=== PATIENT | female | born 1935 | race Caucasian/White ===

== ENCOUNTER 2017-03-25 16:12 | Inpatient (IN) | payer OTHER, MEDICAID ==
--- NOTE | 2017-03-25 16:15 | EDPHY ---
H & P HPI/ROS: CHIEF COMPLAINT: Back pain, malaise HISTORY OF PRESENT ILLNESS: This patient is an anticoagulated (Coumadin) morbidly obese 81 year old female with a history of chronic back pain, type II diabetes, congestive heart failure , valve replacement, and respiratory failure arriving from home via EMS complaining of right-sided back pain and malaise. She was recently evaluated and treated at [facility] for a urinary tract infection/bacteremia over labor day weekend. She had oral and IV antibiotics at that time. She felt her symptoms resolved following this treatment. Over a month ago she was aditted to [facility] and treated for LE cellulitis. Yesterday, she felt fatigued. This morning during mormon she developed back pain and per her neighbor at bedside, began shivering. She takes diuretics for congestive heart failure and edema but feels these pills have not been helping much lately. She has also had to use her inhaler over the past couple weeks, but does not usually need it. She endorses nausea, but has not vomited. She has no current urinary complaints other than a reduced amount of urine, but her back pain is localized to her right kidney area. Her neighbor recommended she present for evaluation. She denies fever, chest pain, diarrhea, dysuria, hematuria, or other associated symptoms. REVIEW OF SYSTEMS: A ten point review of systems was performed and is negative with the exception of the items mentioned in the HPI. Past medical history: 1. Hypertension 2. Osteoarthritis 3. Hypothyroid 4. DM type II 5. Emphysema 6. Obstructive sleep apnea 7. Hypoxemic respiratory failure 8. Pancreatitis 9. Congestive heart failure 10. Macular degeneration 11. Peripheral venous insufficiency Medications: levothyroxine, Coumadin, Lasix, Tyler, Eylea, Atenolol, Past surgical history: Cholecystectomy, aortic and mitral valve replacement Past medical records reviewed including ED visit 03/10/[address] [facility]. Family history: Noncontributory. Social history: Lives independently in her home. Neighbor at bedside. Primary care provider Dr. Trimble at [place]. Nonsmoker. General Appearance: Alert. Vital signs reviewed. BP 170/90/ Eyes: Pupils equal and round, no conjunctival injection, no discharge. Anicteric. ENT, Mouth: Mucous membranes are moist, no oropharyngeal erythema or edema. Neck: No lymphadenopathy, supple. Respiratory: Lungs are clear to auscultation; no wheezes, rales, or rhonchi. Cardiovascular: Regular rate and rhythm; valvular heart sounds. No murmur, rub , or gallop. Gastrointestinal: Abdomen is obese. Soft and nontender, bowel sounds normal. Skin: Warm and dry, no rashes on exposed skin, normal color. Back: Right-sided CVA tenderness. Nontender to palpation over the thoracolumbar spine. Extremities: Bilateral 2+ pitting edema. Neurological: Alert and oriented. Moving all four extremities easily and equally. Psychiatric: Normal affect. Constitutional: Initial Vital Signs Temperature (C) 37.9 C 03/25/17 16:25 Heart Rate 89 03/25/17 16:25 Respiratory Rate 20 03/25/17 16:25 Blood Pressure 170/90 H 03/25/17 16:25 O2 Sat (%) 97 03/25/17 16:25 O2 Delivery Mode Nasal Cannula O2 (L/minute) 2 Allergies/Adverse Reactions: aspirin Allergy (Verified 03/26/17 00:58) Diarrhea lovastatin Allergy (Verified 03/25/17 16:35) niacin Allergy (Verified 03/25/17 16:35) Sulfa (Sulfonamide Antibiotics) Allergy (Verified 03/26/17 00:58) Rash Home Medications: Medication Instructions Recorded Aflibercept [Eylea] 2 mg IO Q28D 03/25/17 Alendronate Sodium [Fosamax 70 MG 70 mg PO WE@0700 03/25/17 (*)] Atenolol [Tenormin 25 mg (*)] 12.5 mg PO DAILY 03/25/17 Cholecalciferol Vit D3 [Vitamin D3 1,000 units PO DAILY 03/25/17 (*)] Fish Oil/Dha/Epa [Fish Oil 1,200 1 each PO DAILY 03/25/17 mg Fish Oil] Furosemide [Lasix 40 MG (*)] 40 mg PO BIDDIUR 03/25/17 Herbals/Supplements -Info Only 1 ea PO DAILY 03/25/17 Hydrocodone/Acetaminophen [Tyler 1 - 2 tab PO Q4H PRN 03/25/17 5/325 (*)] Levothyroxine [Synthroid 100 mcg 100 mcg PO DAILY06 03/25/17 (*)] Multivit-Min/Iron Fum/Folic AC 1 each PO DAILY 03/25/17 [Ynxow-Bngidwo-Oypjbnxp Tablet] Mupirocin 2% [Bactroban 2%] 1 janneth TP DAILY PRN 03/25/17 Warfarin Sodium [Coumadin 5MG (*)] 5 mg PO HS 03/25/17 Medical Decision Making - Diagnostics EKG Interpretation: The 12 lead EKG was interpreted by myself. See hard copy and/or "tracemaster" electronic copy for interpretation. Sinus rhythm, rate 74. Left bundle branch block noted. LBBB listed in her medical records from [facility]. Imaging: I viewed and interpreted images myself ED Course/Re-evaluation: Anticoagulated 81 year old female presents with two day history of malaise and right-sided back pain. Physical exam reveals right-sided CVA tenderness, 2+ pitting edema of lower extremities bilaterally. Plan for labs including CBC, BMP , lactic acid, PTPTT, bilirubin, UA, and respiratory pathogen testing. Plan for chest x-ray. UA is negative for UTI. Laboratory results reviewed. She does not meet sepsis criteria. Reviewed x-ray. Bilateral diffuse interstitial infiltrates noted representing diffuse interstitial pneumonitis versus interstitial pulmonary edema. 17:30 Reassessed patient. Took temp at bedside and it is now elevated. Plan to administer 1000mg PO Tylenol. Family is present at bedside. 19:00 Received and reviewed records from [facility]. She was evaluated 03/10/17, and sent home on Ceftin for urinary tract infection. IV antibiotics (Rocephin) given for two days following positive blood culture results. Repeat blood cultures following IV antibiotics were negative. She completed her course of oral antibiotics yesterday and felt well until today. 20:16 Reassessed patient. When she got up to go to the restroom, her back and legs began hurting. Her back pain is located above her kidneys. She states she had difficulty walking after mormon due to inability to move her legs after mormon, and felt similarly just now ambulating to the restroom. On reexamination , she has midline low thoracic and upper lumbar tenderness. She usually ambulates with a walker, but she was unable to get past the door from bed due to pain in feet, knees, and back. Plan for x-ray of lumbar spine, thoracic spine. Plan to admit for further evaluation. 20:44 The patient is now feeling nauseous and has begun vomiting. Nursing staff have been unable to place an IV successfully. Plan to establish PICC line. 20:[address] Nguyen, hospitalist. Of note, the patient is a [place] patient, but [facility] is currently on divert due to unspecified problems. Dr. Nguyen accepts admission. The patient states she fell a couple months ago, and has been experiencing left hip pain. Plan for x-ray of pelvis. Xrays do not show evidence of compression fracture in spine--but she does have degenerative disease and L45 L5S1 anterolisthesis that would result in canal narrowing. No hip fracture. The degenerative changes and anterolisthesis could be causing her back pain. I am also concerned about infection in this setting of recent UTI, fever, general malaise, and prosthetic heart valves. Possible infected sites include back (discitis), heart valves (endocarditis), and urine (although UA negative for signs of infection). WBC not elevated, procalcitonin WNL, lactic acid normal. She also appears to have an element of CHF with CXR findings and elevated BNP. She did receive lasix in ED. Additional evaluation and treatment per admitting team. Patient will be having PICC line placed and then will go to her floor bed. - Data Points Laboratory Results: Laboratory Results 03/25/17 17:10 03/25/17 16:35 Microbiology Results: MICROBIOLOGY 03/25/17 00:00 Blood Blood Culture - Final Enterococcus Faecalis 03/25/17 17:10 Blood Blood Culture - Final Enterococcus Faecalis 03/25/17 17:10 Blood Blood Panel (PCR) - Final Enterococcus Species Medications Given: Acetaminophen (Tylenol) 650 mg PO Q4HRS PRN PRN Reason: Pain, Mild/Fever, Can Take PO Stop: 09/21/17 20:57 Last Admin: 03/27/17 11:31 Dose: 650 mg Atenolol (Tenormin) 12.5 mg PO DAILY TITUS Stop: 09/23/17 08:59 Last Admin: 03/29/17 08:37 Dose: 12.5 mg Cholecalciferol (Vitamin D) 1,000 units PO DAILY TITUS Stop: 09/23/17 08:59 Last Admin: 03/29/17 08:37 Dose: 1,000 units Vancomycin HCl 750 mg/ (Dextrose) 165 mls @ 165 mls/hr IV Q12H TITUS PRN Reason: Protocol Stop: 04/27/17 20:59 Last Admin: 03/29/17 08:38 Dose: 165 mls Levothyroxine Sodium (Synthroid) 100 mcg PO DAILY06 TITUS Stop: 09/22/17 09:29 Last Admin: 03/29/17 03:56 Dose: 100 mcg Multivitamins/Minerals (Thera M Plus Tablet) 1 each PO DAILY TITUS Stop: 09/23/17 08:59 Last Admin: 03/29/17 08:37 Dose: 1 each Ysmyj-8-Ubmm Ethyl Esters (Fish Oil) 1,000 mg PO DAILY TITUS Stop: 09/23/17 08:59 Last Admin: 03/29/17 08:37 Dose: 1,000 mg Ondansetron HCl (Zofran) 4 mg IVP Q4HRS PRN PRN Reason: Nausea/Vomiting, Can't Take PO Stop: 09/21/17 20:57 Last Admin: 03/26/17 09:33 Dose: 4 mg Oxycodone HCl (Oxycodone Ir) 5 - 10 mg PO Q3HRS PRN PRN Reason: Pain, Severe Able to Take PO Stop: 04/04/17 20:57 Last Admin: 03/29/17 08:37 Dose: 5 mg Warfarin Sodium (Coumadin) 5 mg PO HS TITUS Stop: 09/22/17 20:59 Last Admin: 03/28/17 19:52 Dose: 5 mg Discontinued Medications Acetaminophen (Tylenol) 1,000 mg PO EDNOW ONE Stop: 03/25/17 17:37 Last Admin: 03/25/17 17:45 Dose: 1,000 mg Furosemide (Lasix) 40 mg PO EDNOW ONE Stop: 03/25/17 19:03 Last Admin: 03/25/17 19:04 Dose: 40 mg Furosemide (Lasix Injection) 40 mg IVP BID@0900,1500 TITUS Stop: 09/21/17 21:59 Last Admin: 03/27/17 09:39 Dose: 40 mg Vancomycin HCl 1.25 gm/ (Dextrose) 250 mls @ 166.667 mls/hr IV Q24H TITUS Stop: 04/25/17 05:59 Last Admin: 03/28/17 06:17 Dose: 250 mls Sodium Chloride (Ns) 1,000 mls @ 0 mls/hr IV ONCALL ONE PRN Reason: TKO Stop: 03/26/17 10:20 Last Admin: 03/26/17 11:57 Dose: 1,000 mls Sodium Chloride (Ns) 1,000 mls @ 0 mls/hr IV ONCALL ONE PRN Reason: TKO Stop: 03/27/17 12:36 Last Admin: 03/27/17 13:10 Dose: Not Given Potassium Chloride (Klor-Con) 20 meq PO ONCE ONE Stop: 03/27/17 15:16 Last Admin: 03/27/17 15:15 Dose: 20 meq Departure - Departure Disposition: [facility] Inpatient Acute Clinical Impression: Back pain Qualifiers: Back pain location: low back pain Chronicity: chronic Back pain laterality: left Sciatica presence: without sciatica Qualified Code(s): M54.5 - Low back pain; G89.29 - Other chronic pain Congestive heart failure (CHF) Qualifiers: Congestive heart failure type: unspecified congestive heart failure type Congestive heart failure chronicity: acute on chronic Qualified Code(s): I50.9 - Heart failure, unspecified Condition: Fair Report Scribed for: Mirna Sher Report Scribed by: Ruchi Wall Date of Report: 03/25/17 Time of Report: 16:44 Physician Review and Approval Statement: 03/25/17 16:15 Portions of this note were transcribed by the remote medical coder. I, Dr. Mirna Sher, personally performed the history, physical exam, and medical decision- making; and confirmed the accuracy of the information in the transcribed note.
[2017-03-25 16:56] LABS: % IMMATURE GRANULYOCYTES 0.4 % (0.0-1.1); ABSOLUTE IMMATURE GRANULOCYTES 0.03 10^3/uL (0.00-0.10); ADD DIFF? NO; ADD MORPH? NO; ADD SCAN? YES; ATYPICAL LYMPHOCYTE FLAG 0 (0-99); FRAGMENT RBC FLAG 0 (0-99); HEMATOCRIT 38.2 % (38.0-47.0); HEMOGLOBIN 12.5 g/dL (12.6-16.3); LEFT SHIFT FLG 0 (0-99); LIPEMIA HEMOLYSIS FLAG 80 (0-99); MEAN CELL HEMOGLOBIN 28.2 pg (27.9-34.1); MEAN CELL HEMOGLOBIN CONCENTR. 32.7 g/dL (32.4-36.7); MEAN CELL VOLUME 86.2 fL (81.5-99.8); MEAN PLATELET VOLUME 11.3 fL (8.7-11.7); PLATELET COUNT 187 10^3/uL (150-400); RED BLOOD CELL COUNT 4.43 10^6/uL (4.18-5.33); RED CELL DISTRIBUTION WIDTH 14.4 % (11.5-15.2)
[2017-03-25 16:57] LABS: PLATELET CLUMPS FLAG 300 (0-99)
[2017-03-25 17:14] LABS: ANION GAP 8 mEq/L (8-16); BILIRUBIN,TOTAL 1.3 mg/dL (0.1-1.4); CALCIUM 9.4 mg/dL (8.5-10.4); CARBON DIOXIDE 24 mEq/l (22-31); CHLORIDE 105 mEq/L (97-110); GLOMERULAR FILTRATION RATE 53; GLUCOSE 163 mg/dL (70-100); POTASSIUM 4.5 mEq/L (3.5-5.2); SODIUM 137 mEq/L (134-144); SPECIMEN HEMOLYSIS 118
[2017-03-25 17:19] LABS: SCAN NEGATIVE
[2017-03-25 17:29] LABS: INR 3.05 (0.83-1.16)
[2017-03-25 17:30] LABS: APTT 37.7 SEC (23.0-38.0)
[2017-03-25 17:34] LABS: COLOR YELLOW; LEUKOCYTE ESTERASE,URINE NEGATIVE (NEGATIVE); NITRITE,URINE NEGATIVE (NEGATIVE)
[2017-03-25] MEDS ORDERED: ACETAMINOPHEN 500 MG TAB PO ONE (17:36)
[2017-03-25] MEDS ORDERED: FUROSEMIDE 40 MG TAB PO ONE (19:02)
--- NOTE | 2017-03-25 19:20 | CPEKG ---
Heart Rate: 74 RR Interval: 811 P-R Interval: 232 QRSD Interval: 170 QT Interval: 476 QTC Interval: 529 P Alder: 28 QRS Alder: 16 T Wave Alder: 189 EKG Severity - ABNORMAL ECG - EKG Impression: SINUS RHYTHM EKG Impression: FIRST DEGREE AV BLOCK EKG Impression: IVCD, CONSIDER ATYPICAL LBBB Electronically Signed By: Mirna Sher 26-Mar-2017 00:01:35
[2017-03-25 19:24] LABS: TROPONIN I 0.033 ng/mL (0.000-0.034)
[2017-03-25] MEDS ORDERED: ALTEPLASE 2 MG VIAL IVP PRN (20:44)
[2017-03-25] MEDS ORDERED: ONDANSETRON 4 MG/2 ML VIAL IVP PRN (20:58)
[2017-03-25] MEDS ORDERED: ONDANSETRON DISINTEGRATING 4 MG TAB PO PRN (20:58)
[2017-03-25 21:20] LABS: HEMATOCRIT 36.5 % (38.0-47.0)
--- NOTE | 2017-03-25 21:33 | PDGENHP ---
History and Physical - Chief Complaint Acute malaise - History of Present Illness PCP: Dr. Trimble at [facility] HPI: 81 yo F p/w acute malaise characterized as nausea and generally feeling unwell, resulting in associated weakness located in the bilateral lower extremities, as well as acutely worsening pain located in her lower back, with resultant inability to ambulate. Onset of symptoms on the date of this presentation, and duration has been persistent, rendering her unable to get out of her trailer, and calling 911. She has been taking vicodin chronically to alleviate chronic back pain, but today 2 tabs did not seem to alleviate the worsening pain. This occurs in the context of approx 6 weeks of medical issues: 6 weeks ago she had a 4 day hospitalization at [facility] for cellulitis of the bilateral lower extremities, and was discharged home on oral antibiotics. She then had another presentation to the [facility] ED for what sounds like suspected recurrent cellulitis, and then, recently presented for UTI and bacteremia, for which she received 3 days of IV CTX and then subsequent PO Abx. She completed her course of PO Abx 3 days ago, and has not seen a medical provider since. She has not been adhering to her bid dosing of lasix, occasionally taking only daily, and experiencing leg pain and edema. History Information - Allergies/Home Medication List Allergies/Adverse Reactions: lovastatin Allergy (Verified 03/25/17 16:35) niacin Allergy (Verified 03/25/17 16:35) Home Medications: ALENDRONATE SODIUM 03/25/17 [Last Taken Unknown] Aflibercept 03/25/17 [Last Taken Unknown] Atenolol 03/25/17 [Last Taken Unknown] CHOLECALCIFEROL 03/25/17 [Last Taken Unknown] Furosemide 03/25/17 [Last Taken Unknown] Hydrocodon-Acetaminophen 5-325 03/25/17 [Last Taken Unknown] Levothyroxine 03/25/17 [Last Taken Unknown] Multivit with Iron-Minerals 03/25/17 [Last Taken Unknown] Mupirocin Calcium 03/25/17 [Last Taken Unknown] Ocuvite 03/25/17 [Last Taken Unknown] [place]-3 Fish Oil 1,200 mg Sfgl 03/25/17 [Last Taken Unknown] Onetouch Verio 03/25/17 [Last Taken Unknown] Proair Hfa 03/25/17 [Last Taken Unknown] Triamcinolone Acetonide 03/25/17 [Last Taken Unknown] Vitamin B Complex 03/25/17 [Last Taken Unknown] Warfarin Sodium 03/25/17 [Last Taken Unknown] I have personally reviewed and updated: family history, medical history, social history, surgical history - Past Medical History Additional medical history: CHF. recent UTI/bactermia. HTN. Hypothyroidism. Peripheral Neuropathy. Chronic lower extremity wounds. hx of "blood clots". DM2 diet controlled. chronic lower back pain and continuous opiate dependency - Surgical History Additional surgical history: AVR and MVR on coumadin - Family History Additional family history: no recent sick family contacts - Social History Smoking Status: Former smoker Alcohol Use: None Drug Use: None Additional social history: lives alone in [place], walker at baseline Review of Systems Review of Systems: ROS: 10pt was reviewed & negative except for what was stated in HPI & below Constitutional: Reports: fever (subjective), malaise, weakness Cardiac: Reports: edema Physical Exam Physical Exam: Temp Pulse Resp BP Pulse Ox 37.5 C 67 18 181/87 H 95 03/25/17 18:00 03/25/17 18:00 03/25/17 18:00 03/25/17 18:00 03/25/17 18:00 Constitutional: not in pain, chronically ill appearing, obese, uncomfortable Eyes: PERRL, anicteric sclera, EOMI Ears, Nose, Mouth, Throat: moist mucous membranes, hearing normal, ears appear normal, no oral mucosal ulcers Cardiovascular: systolic murmur (II/ at sternum and apex w/ S2 click at sternum), edema (1+ bilat LE), No irregularly irregular, No tachycardia Respiratory: inspiratory crackles, No reduced air movement, No expiratory wheeze , No bronchial breath sounds, No respiratory distress Gastrointestinal: normoactive bowel sounds, soft, non-tender abdomen, no palpable masses, No guarding, No distension Genitourinary: no bladder fullness, no bladder tenderness Skin: other (scaly patches w/ non-blanching erythema bilat LE) Neurologic: sensation intact bilaterally, CN II-XII Intact, other (AAOx2 ( person and place, not time)), No weakness (motor 5/5 bilat LE) Psychiatric: not anxious, flat affect, other (concentration 1/7), No agitated Lab Data & Imaging Review 03/25/17 17:10 03/25/17 16:35 WBC 7.35 10^3/uL (3.80-9.50) 03/25/17 16:35 RBC 4.43 10^6/uL (4.18-5.33) 03/25/17 16:35 Hgb 12.5 g/dL (12.6-16.3) L 03/25/17 16:35 Hct 36.5 % (38.0-47.0) L 03/25/17 17:10 MCV 86.2 fL (81.5-99.8) 03/25/17 16:35 MCH 28.2 pg (27.9-34.1) 03/25/17 16:35 MCHC 32.7 g/dL (32.4-36.7) 03/25/17 16:35 RDW 14.4 % (11.5-15.2) 03/25/17 16:35 Plt Count 187 10^3/uL (150-400) 03/25/17 16:35 MPV 11.3 fL (8.7-11.7) 03/25/17 16:35 Neut % (Auto) 84.7 % (39.3-74.2) H 03/25/17 16:35 Lymph % (Auto) 8.8 % (15.0-45.0) L 03/25/17 16:35 [place] % (Auto) 5.2 % (4.5-13.0) 03/25/17 16:35 Eos % (Auto) 0.5 % (0.6-7.6) L 03/25/17 16:35 Baso % (Auto) 0.4 % (0.3-1.7) 03/25/17 16:35 Nucleat RBC Rel Count 0.0 % (0.0-0.2) 03/25/17 16:35 Absolute Neuts (auto) 6.22 10^3/uL (1.70-6.50) 03/25/17 16:35 Absolute Lymphs (auto) 0.65 10^3/uL (1.00-3.00) L 03/25/17 16:35 Absolute Monos (auto) 0.38 10^3/uL (0.30-0.80) 03/25/17 16:35 Absolute Eos (auto) 0.04 10^3/uL (0.03-0.40) 03/25/17 16:35 Absolute Basos (auto) 0.03 10^3/uL (0.02-0.10) 03/25/17 16:35 Absolute Nucleated RBC 0.00 10^3/uL (0-0.01) 03/25/17 16:35 Immature Gran % 0.4 % (0.0-1.1) 03/25/17 16:35 Immature Gran # 0.03 10^3/uL (0.00-0.10) 03/25/17 16:35 PT 32.0 SEC (12.0-15.0) H 03/25/17 17:10 INR 3.05 (0.83-1.16) H 03/25/17 17:10 APTT 37.7 SEC (23.0-38.0) 03/25/17 17:10 VBG Lactic Acid 1.4 mmol/L (0.7-2.1) 03/25/17 17:10 Sodium 137 mEq/L (134-144) 03/25/17 16:35 Potassium 4.5 mEq/L (3.5-5.2) 03/25/17 16:35 Chloride 105 mEq/L (97-110) 03/25/17 16:35 Carbon Dioxide 24 mEq/l (22-31) 03/25/17 16:35 Anion Gap 8 mEq/L (8-16) 03/25/17 16:35 BUN 17 mg/dL (7-23) 03/25/17 16:35 Creatinine 1.0 mg/dL (0.6-1.0) 03/25/17 16:35 Estimated GFR 53 03/25/17 16:35 Glucose 163 mg/dL (70-100) H 03/25/17 16:35 Calcium 9.4 mg/dL (8.5-10.4) 03/25/17 16:35 Total Bilirubin 1.3 mg/dL (0.1-1.4) 03/25/17 16:35 Troponin I 0.033 ng/mL (0.000-0.034) 03/25/17 17:10 NT-Pro-B Natriuret Pep 4140 pg/mL (0-450) H 03/25/17 17:10 Specimen Hemolysis 118 03/25/17 16:35 Urine Color YELLOW 03/25/17 17:20 Urine Appearance CLEAR 03/25/17 17:20 Urine pH 7.0 (5.0-7.5) 03/25/17 17:20 Ur Specific [place] 1.018 (1.002-1.030) 03/25/17 17:20 Urine Protein NEGATIVE (NEGATIVE) 03/25/17 17:20 Urine Ketones NEGATIVE (NEGATIVE) 03/25/17 17:20 Urine Blood NEGATIVE (NEGATIVE) 03/25/17 17:20 Urine Nitrate NEGATIVE (NEGATIVE) 03/25/17 17:20 Urine Bilirubin NEGATIVE (NEGATIVE) 03/25/17 17:20 Urine Urobilinogen NEGATIVE EU (0.2-1.0) 03/25/17 17:20 Ur Leukocyte Esterase NEGATIVE (NEGATIVE) 03/25/17 17:20 Urine RBC 3-5 /hpf (0-3) H 03/25/17 17:20 Urine WBC 1-3 /hpf (0-3) 03/25/17 17:20 Ur Epithelial Cells TRACE /lpf (NONE-1+) 03/25/17 17:20 Urine Glucose 1+ (NEGATIVE) H 03/25/17 17:20 Visualized and Interpreted Chest x-ray results: Yes Chest X-Ray results: other (bilat interstitial edema) Visualized and Interpreted EKG results: Yes EKG Interpretation: Positive for: left bundle branch block (NSR) Assessment & Plan Assessment: 81 yo F p/w general malaise in setting of recent bacteremia, possible CHF exacerbation Plan: # Malaise. Acute, new problem, further w/u indicated. Unclear if 2/2 CHF vs. retained infxn - it is possible that she has seeded either her valves or back - get procalcitonin, ESR, CRP, CPK to gauge whether left shift and subjective fever indicative of infxn - get VBG to r/o hypercapnia - get Echo - monitor fever curve, repeat CBC in AM - hold on Abx - if inflammatory markers positive and x-rays of back do not demonstrate compression fxr or other etiology of her pain, would recommend pursuing MRI - if TTE neg but infxn suspicion high, would rec RUBIO, will make NPO in AM - will get ID consult # Possible CHF exacerbation. CXR w/ interstitial infiltrates, BNP 4100, LE edema , poor adherence to diuretic - s/p PO lasix in ED, will cont IV bid - obtain outside Echo record from [facility] - get Echo here - monitor I/O/weights - further define whether systolic or diastolic # MVR/AVR. Cont coumadin, daily INR # HTN. Chronic, cont home RX w/ increased dose of lasix # Chronic pain w/ continuous opiate dependency. Cont oxy IR + tylenol + heat pad + lidoderm - PT/OT, will likely require SNF 2/2 deconditioning # Acute encephalopathy. Evidenced by global brain dysfunction characterized as disorientation + impaired concentration + lethargy, all of which are an acute change from baseline, 2/2 possible toxic effects of infxn, ruling out hypercapnia Diet. Cardiac, NPO in AM PPx. High risk, on coumadin Code. DNR per patient, daughter is MDPOA Dispo. ADD uncertain, anticipated LOS > 48hrs warranting inpatient admission for reasonable medical necessity including malaise and possible infxn in high risk patient w/ recent bacteremia, possible CHF exacerbation. Discussed with Dr. Sher, we both agree that patient warrants inpatient admission for w/u of above, unsafe to DC home, unable to care for self. [facility] is on divert and patient was sent to our hospital, as there is some type of generator issue resulting in their hospital being on divert.
[2017-03-25] MEDS ORDERED: ACETAMINOPHEN 325 MG TAB ONE (21:38)
[2017-03-25] MEDS ORDERED: oxyCODONE IR 5 MG TAB ONE (21:39)
[2017-03-25] MEDS: ACETAMINOPHEN 325 MG TAB PO PRN (21:40)
[2017-03-25] MEDS: oxyCODONE IR 5 MG TAB PO PRN (21:41)
[2017-03-25 21:44] LABS: C-REACTIVE PROTEIN 11.8 mg/L (<10.0)
[2017-03-26] MEDS: FUROSEMIDE 40 MG/4 ML VIAL IVP SCH ×3 (00:22→14:59)
[2017-03-26] MEDS: ACETAMINOPHEN 325 MG TAB PO PRN ×3 (05:43→23:19)
[2017-03-26] MEDS: VANCOMYCIN 1.25 GM in D5W 250 ML IV SCH (05:44)
[2017-03-26 06:08] LABS: % IMMATURE GRANULYOCYTES 0.2 % (0.0-1.1); ABSOLUTE IMMATURE GRANULOCYTES 0.02 10^3/uL (0.00-0.10); ADD DIFF? NO; ADD MORPH? NO; ADD SCAN? NO; ATYPICAL LYMPHOCYTE FLAG 0 (0-99); FRAGMENT RBC FLAG 0 (0-99); HEMATOCRIT 33.9 % (38.0-47.0); HEMOGLOBIN 11.1 g/dL (12.6-16.3); LEFT SHIFT FLG 10 (0-99); LIPEMIA HEMOLYSIS FLAG 80 (0-99); MEAN CELL HEMOGLOBIN CONCENTR. 32.7 g/dL (32.4-36.7); MEAN CELL VOLUME 85.4 fL (81.5-99.8); MEAN PLATELET VOLUME 10.9 fL (8.7-11.7); PLATELET CLUMPS FLAG 0 (0-99); PLATELET COUNT 137 10^3/uL (150-400); RED BLOOD CELL COUNT 3.97 10^6/uL (4.18-5.33); RED CELL DISTRIBUTION WIDTH 14.4 % (11.5-15.2)
[2017-03-26 06:26] LABS: ALANINE AMINOTRANSFERASE 33 IU/L (9-52); ALBUMIN 3.1 g/dL (3.5-5.0); ALKALINE PHOSPHATASE 70 IU/L (38-126); ANION GAP 8 mEq/L (8-16); ASPARTATE AMINOTRANSFERASE 52 IU/L (14-46); BILIRUBIN,TOTAL 1.1 mg/dL (0.1-1.4); CALCIUM 8.4 mg/dL (8.5-10.4); CARBON DIOXIDE 25 mEq/l (22-31); CHLORIDE 102 mEq/L (97-110); CREATININE 1.1 mg/dL (0.6-1.0); GLOMERULAR FILTRATION RATE 47; GLUCOSE 181 mg/dL (70-100); POTASSIUM 3.7 mEq/L (3.5-5.2); SODIUM 135 mEq/L (134-144); TOTAL PROTEIN 5.5 g/dL (6.3-8.2)
[2017-03-26] MEDS: oxyCODONE IR 5 MG TAB PO PRN ×2 (09:07→19:42)
[2017-03-26] MEDS ORDERED: MUPIROCIN 2% 22 GM OINT TP PRN (09:30)
--- NOTE | 2017-03-26 10:06 | ECHO ---
[id number] + + [address] : : [place] [address] : : [phone] + + Adult Echocardiographic Report + -----+ :Name: HAZEL SIMPSON LStudy Date: 03/26/2017 08:40 AM : : Hospital Admission Number: [id number] Location : 206: :: 1935 Gender: Female Height: 60 in : :Age: 81 yrs Race: WH Weight: 211 lb : :Reason For Study: Eval for Vegetations : : BSA: 1.9 meters2 : :History: Fever, UTI, AVR/MVR 2004 : + -----+ MMode/2D Measurements & Calculations IVSd: 0.90 cm LVIDd: 4.2 cm FS: 27.6 % Ao root diam: 2.1 cm LVPWd: 1.2 cm LVIDs: 3.0 cm EDV(Teich): 77.0 ml ACS: 1.1 cm ESV(Teich): 35.4 ml EF(Teich): 54.1 % LVOT diam: 1.9 cm LVOT area: 2.8 cm2 Normal Measurement Values: + + :LVIDd (3.5-5.7cm) IVSd (0.6-1.1cm) LVPWd (0.6-1.1cm) Aortic Root (2.0-3.7cm)Left Atrium (1.5-4.0cm): :LV Vol(d) (76-115ml) LV Vol(s) (29-48ml) Ejec Fraction (50-65%)PV Kishor (0.6- 1.2m/s) TV Kishor (0.4-1.0m/s) : :MV E Kishor (0.8-1.0m/s)MV A Kishor (0.3-1.0m/s)LVOT Kishor (0.7-1.2m/s) Asc Ao Kishor ( 0.9-1.8m/s) : + + Doppler Measurements & Calculations MV E max kishor: MV V2 mean: MV P1/2t max kishor: Ao V2 max: 203.6 cm/sec 147.3 cm/sec 253.8 cm/sec 289.1 cm/sec MV A max kishor: MV mean PG: MV P1/2t: 51.4 msec Ao max P.4 cm/sec 10.1 mmHg 33.4 mmHg MV E/A: 2.4 MV V2 VTI: 51.4 cmMVA(P1/2t): 4.3 cm2 Ao mean PG: MV dec time: MV dec slope: 21.6 mmHg 0.19 sec MVA(VTI): 1.2 cm2 1448 cm/sec2 Ao V2 mean: 217.5 cm/sec Ao V2 VTI: 64.2 cm HAWA(I,D): 0.96 cm2 HAWA(V,D): 0.83 cm2 LV V1 max: SV(LVOT): 61.5 ml 85.0 cm/sec LV V1 max P.9 mmHg LV V1 mean P.7 mmHg LV V1 mean: 62.9 cm/sec LV V1 VTI: 21.7 cm Left Ventricle The left ventricle is normal in size. There is normal left ventricular wall thickness. Ejection Fraction = 55%. Left ventricular systolic function is low normal. Right Ventricle The right ventricle is normal in size and function. Atria The left atrium is mildly dilated. Right atrial size is normal. Mitral Valve There is a bioprosthetic mitral valve. Vegetations are suspected on this prosthetic mitral valve. Cannot assess the presence or severity of regurgitation due to shielding from the prosthesis. Gradients are abnormal for this prosthetic mitral valve. The MV mean PG is 10 mmHg. Tricuspid Valve The tricuspid valve is normal in structure and function. Aortic Valve The Ao mean PG is 21mmHg with a max PG of 33 mmHg. There is a bioprosthetic aortic valve. Vegetations are suspected on this prosthetic aortic valve. Pulmonic Valve The pulmonic valve is normal in structure and function. Great Vessels The aortic root is normal size. Pericardium/Pleural There is no pericardial effusion. Conclusion A complete two-dimensional transthoracic echocardiogram was performed (2D, M-mode, Doppler and color flow Doppler). A transesophageal echocardiogram is recommended. Ejection Fraction = 55%. Left ventricular systolic function is low normal. The right ventricle is normal in size and function. The left atrium is mildly dilated. There is a bioprosthetic mitral valve. Vegetations are suspected on this prosthetic mitral valve. Cannot assess the presence or severity of regurgitation due to shielding from the prosthesis. Gradients are abnormal for this prosthetic mitral valve. The MV mean PG is 10 mmHg. The tricuspid valve is normal in structure and function. There is a bioprosthetic aortic valve. The Ao mean PG is 21mmHg with a max PG of 33 mmHg. Vegetations are suspected on this prosthetic aortic valve. There is no pericardial effusion. A transesophageal echocardiogram is recommended. Final Reading Physician: Saeid Hallman signed on 03/26/2017 10:05 AM Ordering Physician: Prashanth Nguyen Performed By: Morgan Encinas, CLOVERCS
[2017-03-26] MEDS ORDERED: NS 1,000 ML IV ONE (10:19)
[2017-03-26] MEDS: LEVOTHYROXINE 100 MCG TAB PO SCH (11:57)
--- NOTE | 2017-03-26 12:53 | ASMTCMCOM ---
CM Note CM Note Notes: Pt admitted with malaise and lower back pain. testing in progress, ID consult pending. C/M will follow for DC needs. Date Signed: 03/26/2017 12:53 PM Electronically Signed By:Suzette Oneill LCSW
--- NOTE | 2017-03-26 15:37 | HOSPPROG ---
Hospitalist Progress Note Assessment/Plan: # Acute Enterococcus bacteremia- 2/2 blood cultures from admission- Prelim ECHO concerning for possible vegetation - consult Cardiology for transesophageal echocardiogram - continue IV vancomycin - consult Infectious Disease for long-term management of bacteremia # Thoracic back pain acute- thoracic spine x-ray (personally reviewed and interpreted) no acute fractures or findings consistent with bony abnormality - thoracic MRI to rule-out epidural abscess - will continue p.r.n. pain meds # Possible CHF exacerbation. CXR w/ interstitial infiltrates, BNP 4100, LE edema, poor adherence to diuretic ECHO (reviewed) ejection fraction 50%- concern for vegetations - s/p PO lasix in ED, will cont IV bid # MVR/AVR. Cont coumadin, daily INR # HTN. Chronic, cont home RX w/ increased dose of lasix # Chronic pain w/ continuous opiate dependency. - Cont oxy IR + tylenol + heat pad + lidoderm - PT/OT, will likely require SNF 2/2 deconditioning # Acute encephalopathy- appears improved overnight Diet. Cardiac, NPO for RUBIO PPx. High risk, on coumadin Code. DNR per patient, daughter is MDPOA I have discussed the case with Cardiology and Infectious Disease will plan for transesophageal echocardiogram continue IV antibiotics Subjective: Back pain thoracic Objective: Vital Signs Temp Pulse Resp BP Pulse Ox 37.9 C 70 18 141/46 H 93 03/26/17 12:00 03/26/17 12:00 03/26/17 12:00 03/26/17 12:00 03/26/17 12:00 Laboratory Results 03/26/17 05:50 03/26/17 05:50 03/25/17 03/26/17 03/27/17 05:59 05:59 05:59 Intake Total 250 Output Total 525 Balance -525 250 PT 32.0 SEC (12.0-15.0) H 03/25/17 17:10 INR 3.05 (0.83-1.16) H 03/25/17 17:10 - Physical Exam Constitutional: obese Eyes: anicteric sclera Ears, Nose, Mouth, Throat: dry mucous membranes Cardiovascular: regular rate and rhythym, systolic murmur Respiratory: no respiratory distress, inspiratory crackles Gastrointestinal: normoactive bowel sounds Genitourinary: no bladder fullness Skin: warm Musculoskeletal: No asymmetric calves Neurologic: AAOx3 Psychiatric: depressed Lymph, Heme, Immunologic: no cervical LAD ICD10 Worksheet Patient Problems: Problems Problem Status Onset Back pain Acute Congestive heart failure (CHF) Acute
[2017-03-26] MEDS ORDERED: GADOBUTROL 10 ML VIAL IVP ONE (18:13)
--- NOTE | 2017-03-26 18:24 | GCON ---
[f rep st] CONSULTATION INFECTIOUS DISEASE CONSULTATION REFERRING PHYSICIAN: Prashanth Nguyen MD REASON FOR REFERRAL: Bacteremia and probable endocarditis. HISTORY OF PRESENT ILLNESS: Patient is an 81-year-old female who has had the majority of her care in the [facility], who presented to [facility] on 03/25/2017, in the early or mid afte rnoon, complaining of back pain and general malaise. The patient states that over the last number of months, she has been evaluated and admitted at [facility] for urinary tract infections and bacteremia. She has had multiple antibiotic courses over the last 6 months, where she felt elizabeth r during treatment but soon thereafter, recurred with symptoms. The patient is unaware of which path ogens were cultured during these episodes. The patient was seen and placed on IV vancomycin 1.25 g q .24 hours. Blood cultures obtained yesterday afternoon grew Enterococcus species. Currently, the michael luz is resting comfortably in her hospital bed. She states she feels a little better than she did yesterday. She continues to have some back pain. The patient has had fevers to 39 degree Celsius, b oth yesterday and today, which are documented. PAST MEDICAL HISTORY: 1. Congestive heart failure. 2. Recent urinary tract infections and bacteremia. 3. Hypertension. 4. Hypothyroidism. 5. Peripheral neuropathy. 6. History of blood clots. 7. Type 2 diabetes. 8. Chronic low back pain. PAST SURGICAL HISTORY: Status post aortic valve and mitral valve replacement in 2001. ANTIBIOTICS: Vancomycin. ALLERGIES: The patient is allergic to sulfa, niacin, lovastatin and aspirin. SOCIAL HISTORY: The patient is without significant history for tobacco, alcohol or drug use. She porras s a supportive family. FAMILY HISTORY: Reviewed, but noncontributory. REVIEW OF SYSTEMS: Other than that detailed above in History of Present Illness, a comprehensive 10- system review is negative. PHYSICAL EXAMINATION: VITAL SIGNS: Temperature maximum is 39.1, temperature current is 37.8, heart rate is 81, respiratory rate is 16, blood pressure is 106/58. GENERAL: The patient is a well-formed , well-nourished, elderly female, in no acute distress. She is mildly toxic in appearance. She is a lert and oriented x3. She is pleasant in demeanor. HEENT: Normocephalic for age. Atraumatic. No scleral icterus. No oral lesion. No drainage from the nares. Eyes: Lids and conjunctivae are with in normal limits. Pupils are equal and round bilaterally. NECK: Supple without meningismus. LUNGS : Clear to auscultation bilaterally with good effort. HEART: Regular rate and rhythm. The patient has a 2/6 systolic murmur heard at the left sternal border. No rub appreciated. The patient has 1+ bilateral peripheral lower extremity edema. ABDOMEN: Soft, nontender. No masses. SKIN: Warm and dry to the touch. No rash or lesions seen. MUSCULOSKELETAL: No muscle tenderness is noted. No peyton int line effusion or arthritis seen. NEURO: Cranial nerves 2-12 seem to be intact. Peripheral sens ation seems intact in extremities. LABORATORY DATA: Patient has a CBC dated -, shows a white blood cell count of 9.2, hemoglob in 11.1, hematocrit of 33.9, platelet count 137, differential is left shifted with 92% segmented neut rophils. Serum chemistries on 03/26 show a sodium of 135, potassium 3.7, chloride of 102, bicarbonate 25, BUN of 17, creatinine 1.1. AST is 52. ALT is 33. Procalcitonin level is 0.09. MICROBIOLOGIC DATA: Patient has blood cultures dated 03/25/2017, which show enterococcus species. ASSESSMENT: Enterococcal bacteremia with appearance of vegetation on the transthoracic echocardiogra m. 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 Agree with vancomycin coverage until sensitivities of Enterococcus are elucidated. We will recheck blood cultures tomorrow with 2 sets. We will further discuss with Cardiology the size and nature the vegetations. Will also obtain from [facility], the history of microbiologic isolates. PLAN: 1. Continue vancomycin at current dose. 2. Check vancomycin trough prior to 4th dose. 3. Repeat blood cultures in the morning. 4. Follow clinical course, including fever curve and laboratory data. /[id number]/MODL
[2017-03-26] MEDS: WARFARIN SODIUM 5 MG TAB PO SCH (19:42)
[2017-03-27] MEDS: VANCOMYCIN 1.25 GM in D5W 250 ML IV SCH (05:21)
[2017-03-27] MEDS: LEVOTHYROXINE 100 MCG TAB PO SCH (05:21)
[2017-03-27 07:20] LABS: HEMATOCRIT 29.1 % (38.0-47.0); HEMOGLOBIN 9.5 g/dL (12.6-16.3); MEAN CELL HEMOGLOBIN 28.3 pg (27.9-34.1); MEAN CELL HEMOGLOBIN CONCENTR. 32.6 g/dL (32.4-36.7); MEAN CELL VOLUME 86.6 fL (81.5-99.8); RED BLOOD CELL COUNT 3.36 10^6/uL (4.18-5.33); RED CELL DISTRIBUTION WIDTH 14.7 % (11.5-15.2)
[2017-03-27 07:29] LABS: INR 3.15 (0.83-1.16); PROTIME(PATIENT) 32.8 SEC (12.0-15.0)
[2017-03-27 07:40] LABS: ANION GAP 6 mEq/L (8-16); CALCIUM 7.7 mg/dL (8.5-10.4); CARBON DIOXIDE 27 mEq/l (22-31); CHLORIDE 101 mEq/L (97-110); CREATININE 1.3 mg/dL (0.6-1.0); GLOMERULAR FILTRATION RATE 39; GLUCOSE 189 mg/dL (70-100); POTASSIUM 3.5 mEq/L (3.5-5.2); SODIUM 134 mEq/L (134-144)
[2017-03-27] MEDS ORDERED: Herbals/Supplements -Info Only PO SCH (09:00)
[2017-03-27] MEDS: FUROSEMIDE 40 MG/4 ML VIAL IVP SCH (09:39)
[2017-03-27] MEDS: ATENOLOL 25 MG TAB PO SCH (09:59)
[2017-03-27] MEDS: MULTIVITAMINS W-MINERALS 1 EACH TAB PO SCH (09:59)
[2017-03-27] MEDS: CHOLECALCIFEROL VIT D3 1,000 UNITS TAB PO SCH (09:59)
[2017-03-27] MEDS: OMEGA-3 FATTY ACIDS 1,000 MG CAP PO SCH (09:59)
[2017-03-27] MEDS ORDERED: POTASSIUM CL 10 MEQ TAB PO ONE ×2 (11:00→15:15)
[2017-03-27] MEDS: ACETAMINOPHEN 325 MG TAB PO PRN (11:31)
--- NOTE | 2017-03-27 12:09 | PCMIDPN ---
Assessment/Plan: Assessment/Plan: 1. Enterococcal bacteremia/sepsis with possible prosthetic mitral valve IE: -f/u blood cx from 03/27 pending - for RUBIO later today -Currently on Vanco. - Creatinine rising, today 1.3. -will check random dose in Am prior to third dose to get a sense of where her level is. she already received today's dose this morning. -continue to f/u labs closely while on therapy. Meds vanco 1.25gm daily- 03/26/17 Subjective: afebrile. appears weak and tired. she denies sob, but she is mildly tachypneic. denies chest pain, abd pain. had BM yesterday. Objective: Vital Signs Temp Pulse Resp BP Pulse Ox 37.6 C 79 12 108/60 96 03/27/17 08:00 03/27/17 09:59 03/27/17 08:00 03/27/17 09:59 03/27/17 08:00 Laboratory Results 03/27/17 07:10 03/27/17 07:10 03/26/17 03/27/17 03/28/17 05:59 05:59 05:59 Intake Total 250 Output Total 525 175 Balance -525 75 ESR 34 MM/HR (0-30) H 03/25/17 17:10 C-Reactive Protein 11.8 mg/L (<10.0) H 03/25/17 17:10 - Physical Exam General Appearance: alert, other (appears weak and tired) Respiratory: coarse breath sounds Cardiac/Chest: regular rate, rhythm, systolic murmur Extremities: swelling Abdomen: normal bowel sounds, non-tender, soft, No distended Skin: other (RLE: erythema patchy noted. ) ICD10 Worksheet Patient Problems: Problems Problem Status Onset Back pain Acute Congestive heart failure (CHF) Acute
[2017-03-27] MEDS ORDERED: NS 1,000 ML IV ONE (12:35)
--- NOTE | 2017-03-27 12:35 | PDHPUP ---
History & Physical Update H&P update statement: This history and physical update is based on an assessment of the patient which was completed after admission or registration (within 24 hours), but prior to the surgery/procedure. H&P update: H&P reviewed & patient examined, no change in patient's condition since H&P completed
--- NOTE | 2017-03-27 12:39 | PDANEPAE ---
ANE History of Present Illness 81 yo F here for RUBIO ANE Past Medical History - Cardiovascular History Hx Hypertension: Yes - Pulmonary History Hx Oxygen in Use at Home: Yes O2 in Use at Home (L/minute): 2L at night and prn Hx Sleep Apnea: Yes - Endocrine History Hx Diabetes: Yes - Chronic Pain History Chronic Pain: Yes ANE Review of Systems Review of Systems: - Exercise capacity Exercise capacity: limited by disability ANE Patient History - Allergies Allergies/Adverse Reactions: aspirin Allergy (Verified 03/26/17 00:58) Diarrhea lovastatin Allergy (Verified 03/25/17 16:35) niacin Allergy (Verified 03/25/17 16:35) Sulfa (Sulfonamide Antibiotics) Allergy (Verified 03/26/17 00:58) Rash - Home Medications Home Medications: Aflibercept [Eylea] 2 mg IO Q28D 03/25/17 [Last Taken 03/12/17] Alendronate Sodium [Fosamax 70 MG (*)] 70 mg PO WE@0700 03/25/17 [Last Taken Unknown] Atenolol [Tenormin 25 mg (*)] 12.5 mg PO DAILY 03/25/17 [Last Taken 03/27/17] Cholecalciferol Vit D3 [Vitamin D3 (*)] 1,000 units PO DAILY 03/25/17 [Last Taken Unknown] Fish Oil/Dha/Epa [Fish Oil 1,200 mg Fish Oil] 1 each PO DAILY 03/25/17 [Last Taken Unknown] Furosemide [Lasix 40 MG (*)] 40 mg PO BIDDIUR 03/25/17 [Last Taken 03/24/17] Herbals/Supplements -Info Only 1 ea PO DAILY 03/25/17 [Last Taken Unknown] Hydrocodone/Acetaminophen [[place] 5/325 (*)] 1 - 2 tab PO Q4H PRN 03/25/17 [Last Taken 03/25/17 12:00 2 TABS] Levothyroxine [Synthroid 100 mcg (*)] 100 mcg PO DAILY06 03/25/17 [Last Taken ] Multivit-Min/Iron Fum/Folic AC [Yyozm-Qvkvedg-Ophkhfjc Tablet] 1 each PO DAILY 03/25/17 [Last Taken Unknown] Mupirocin 2% [Bactroban 2%] 1 janneth TP DAILY PRN 03/25/17 [Last Taken Unknown] Warfarin Sodium [Coumadin 5MG (*)] 5 mg PO HS 03/25/17 [Last Taken 03/24/17] - NPO status NPO Status: no food or drink >8 hours - Anes Hx Anes Hx: no prior problems - Smoking Hx Smoking Status: Former smoker - Alcohol Use Alcohol Use: None - Family Anes Hx Family Anes Hx: none ANE Labs/Vital Signs - Labs Result Diagrams: 03/27/17 07:10 03/27/17 07:10 - Vital Signs Blood Pressure: 108/60 Heart Rate: 79 Respiratory Rate: 12 O2 Sat (%): 96 Height: 152.4 cm Weight: 95.2 kg ANE Physical Exam - Airway Mallampati Score: Class 2 Mouth exam: dentures - Pulmonary Pulmonary: no respiratory distress - Cardiovascular Cardiovascular: regular rate and rhythym - ASA Status ASA Status: III ANE Anesthesia Plan Anesthesia Plan: GA with mask Total IV Anesthesia: Yes
[2017-03-27] MEDS ORDERED: PROPOFOL 200 MG/20 ML VIAL ONE ×2 (12:41→12:42)
--- NOTE | 2017-03-27 12:56 | HOSPPROG ---
Hospitalist Progress Note Assessment/Plan: # Acute Enterococcus bacteremia- 2/2 blood cultures from admission- Prelim ECHO concerning for possible vegetation EKG (personally reviewed and interpreted) sinus with LBBB - NPO for RUBIO today - continue IV vancomycin - surveillance cultures today - ID following # Thoracic back pain acute- thoracic spine x-ray (personally reviewed and interpreted) no acute fractures or findings consistent with bony abnormality thoracic MRI ( personally reviewed and interpreted) negative for epidural abscess - will continue p.r.n. pain meds # acute kidney injury- suspect may be related to IV Lasix versus vancomycin - DC Lasix - discussed with pharmacy will draw a vancomycin trough in a.m. - recheck BMP in a.m. # Persistent fever - 39.3 this am - concerning for endocarditis - surveillance cultures this am - cont IV abx # normocytic anemia- suspect some drop in hemoglobin secondary to blood draws blood cultures etc- no clinical losses oxygen saturations 96% on 2L - monitor # Possible CHF exacerbation on admission. CXR w/ interstitial infiltrates, BNP 4100, LE edema, poor adherence to diuretic ECHO (reviewed) ejection fraction 50%- concern for vegetations - will dc IV bid as creatinine bumped this am # MVR/AVR. Cont coumadin, daily INR # HTN. Chronic, cont home RX # Chronic pain w/ continuous opiate dependency. - Cont oxy IR + tylenol + heat pad + lidoderm - PT/OT, will likely require SNF 2/2 deconditioning # Acute encephalopathy- appears resolved Diet. Cardiac, NPO for RUBIO PPx. High risk, on coumadin Code. DNR per patient, daughter is MDPOA I have discussed the case with ID - continue IV vancomycin - RUBIO today to rule- out bacterial endocarditis Subjective: back pain persists - breathing comfortably Objective: Vital Signs Temp Pulse Resp BP Pulse Ox 37.6 C 79 12 108/60 96 03/27/17 08:00 03/27/17 12:39 03/27/17 12:39 03/27/17 12:39 03/27/17 12:39 Laboratory Results 03/27/17 07:10 03/27/17 07:10 03/26/17 03/27/17 03/28/17 05:59 05:59 05:59 Intake Total 250 Output Total 525 175 Balance -525 75 PT 32.8 SEC (12.0-15.0) H 03/27/17 07:10 INR 3.15 (0.83-1.16) H 03/27/17 07:10 - Physical Exam Constitutional: obese Eyes: anicteric sclera Ears, Nose, Mouth, Throat: moist mucous membranes Cardiovascular: regular rate and rhythym Respiratory: No expiratory wheeze, No inspiratory crackles Gastrointestinal: normoactive bowel sounds Genitourinary: no bladder fullness Skin: warm Musculoskeletal: No asymmetric calves Neurologic: AAOx3 Psychiatric: depressed, flat affect Lymph, Heme, Immunologic: no cervical LAD ICD10 Worksheet Patient Problems: Problems Problem Status Onset Back pain Acute Congestive heart failure (CHF) Acute
[2017-03-27] MEDS ORDERED: NALOXONE HCL 0.4 MG/ML INJ IVP PRN (13:04)
--- NOTE | 2017-03-27 13:04 | POSTANESTH ---
Post Anesthetic Evaluation Cardiovascular Status: Normal, Stable, Similar to Pre-Op Cond Respiratory Status: Normal, Stable, Similar to Pre-op Cond. Level of Consciousness/Mental Status: Can Participate in Eval, Alert and Oriented Pain Control: Adequate, Prn Tx Ordered Nausea/Vomiting Control: Adequate, Prn Tx Ordered Complications Possibly Related to Anesthesia: None Noted
--- NOTE | 2017-03-27 15:53 | ECHO ---
[email or web address] [phone] Main: [phone] Fax: Transesophageal Echocardiography Name: HAZEL SIMPSON MR#: [id number] Study Date: 03/27/2017 Study Time: 12:18 PM Date of : 1935 Age: 81 year(s) Height: 152.4 cm (60 in.) Weight: 95.71 kg (211 lb.) BSA: 1.91 m2 Gender: Female Examination: RUBIO Indication: Suspected vegetation Image Quality: Contrast: Requested by: Prashanth Nguyen Heart Rate: Rhythm: BP: / Procedure Staff Ordering Physician: RHONDA Staff Respiratory Therapist: Morgan Encinas Reading Physician: RUBIO Exam Details Heart Rhythm: Conclusions: Measurements: Chambers Valvular Assessment AV/MV Valvular Assessment TV/PV Normal Normal Normal Name Value Range Name Value Range Name Value Range Additional Measurements: Findings: Left Ventricle: Normal size left ventricle. Normal global systolic LV function. Normal global systolic LV function. Right Ventricle: Left Atrium: An agitated saline study was performed and was negative for intracardiac shunting. Right Atrium: An agitated saline study was performed and was negative for intracardiac shunting. Mitral Valve: A mechanical, bileaflet mitral valve prosthesis is in place. Mild MV prosthesis regurgitation. No vegetation on mitral valve prosthesis. Aortic Valve: Patient: HAZEL SIMPSON Study Date: 03/27/2017 Page 1 of 2 12:18 PM The aortic valve is a bioprosthesis. No more details are available. Trivial prosthesis regurgitation. Tricuspid Valve: The tricuspid valve is normal in appearance and function. Pulmonic Valve: Great Vessels: Pericardium: No pericardial effusion. (No Signature Object) Patient: HAZEL SIMPSON Study Date: 03/27/2017 Page 2 of 2 12:18 PM [id number]
--- NOTE | 2017-03-27 16:37 | CPIP ---
[f rep st] INVASIVE CARDIAC PROCEDURE PROCEDURE: transesophageal echocardiogram. The patient gave informed consent for a transesophageal echocardiographic study. I reviewed with her before anesthetic was given the complications, the risks, and the benefits of this procedure, and th e alternative procedures that are acceptable. She chose to proceed with transesophageal echocardiogr aphy. The procedure was done without any complications. There is a formal report of the findings th at have already been dictated. In summary, the patient has no signs of vegetation on her prosthetic aortic or mitral valve. The sapna ve seating is excellent. There is not a significant degree of regurgitation or any other signs of ma lfunction on the valves at this time. All the patient's questions have been answered. COMPLICATIONS: None. /[id number]/MODL
[2017-03-27] MEDS: WARFARIN SODIUM 5 MG TAB PO SCH (21:30)
[2017-03-28] MEDS: LEVOTHYROXINE 100 MCG TAB PO SCH (04:16)
[2017-03-28] MEDS: oxyCODONE IR 5 MG TAB PO PRN (04:16)
[2017-03-28 05:39] LABS: ADD DIFF? NO; ADD MORPH? NO; ATYPICAL LYMPHOCYTE FLAG 0 (0-99); FRAGMENT RBC FLAG 0 (0-99); LIPEMIA HEMOLYSIS FLAG 80 (0-99); PLATELET COUNT 91 10^3/uL (150-400); RED CELL DISTRIBUTION WIDTH 14.3 % (11.5-15.2)
[2017-03-28 05:52] LABS: ANION GAP 5 mEq/L (8-16); CALCIUM 7.9 mg/dL (8.5-10.4); CARBON DIOXIDE 27 mEq/l (22-31); CHLORIDE 99 mEq/L (97-110); CREATININE 1.1 mg/dL (0.6-1.0); GLOMERULAR FILTRATION RATE 47; GLUCOSE 176 mg/dL (70-100); POTASSIUM 3.8 mEq/L (3.5-5.2); SODIUM 131 mEq/L (134-144)
[2017-03-28 05:57] LABS: VANCOMYCIN RANDOM LEVEL 8.5 mcg/mL (0.0-40.0)
[2017-03-28 06:03] LABS: % IMMATURE GRANULYOCYTES 0.7 % (0.0-1.1); ABSOLUTE IMMATURE GRANULOCYTES 0.03 10^3/uL (0.00-0.10); ADD SCAN? NO; HEMATOCRIT 30.9 % (38.0-47.0); HEMOGLOBIN 10.1 g/dL (12.6-16.3); LEFT SHIFT FLG 20 (0-99); MEAN CELL HEMOGLOBIN 28.1 pg (27.9-34.1); MEAN CELL HEMOGLOBIN CONCENTR. 32.7 g/dL (32.4-36.7); MEAN CELL VOLUME 86.1 fL (81.5-99.8); MEAN PLATELET VOLUME 12.2 fL (8.7-11.7); PLATELET CLUMPS FLAG 30 (0-99); RED BLOOD CELL COUNT 3.59 10^6/uL (4.18-5.33)
[2017-03-28] MEDS: VANCOMYCIN 1.25 GM in D5W 250 ML IV SCH (06:17)
[2017-03-28 06:23] LABS: INR 2.22 (0.83-1.16); PROTIME(PATIENT) 24.8 SEC (12.0-15.0)
--- NOTE | 2017-03-28 08:54 | HOSPPROG ---
Hospitalist Progress Note Assessment/Plan: # Acute Enterococcus bacteremia- 2/2 blood cultures from admission- Prelim ECHO concerning for possible vegetation Surveillance 02/24/17 1/2 cultures + this am RUBIO (personally reviewed ) no vegetations - valves normal visually - continue IV vancomycin - surveillance cultures per ID - no PICC yet as persistent bacteremia- will discuss with ID additional diagnostics # Thoracic back pain acute- thoracic spine x-ray (personally reviewed and interpreted) no acute fractures or findings consistent with bony abnormality thoracic MRI ( personally reviewed and interpreted) negative for epidural abscess - will continue p.r.n. pain meds # Acute kidney injury- suspect 2/2 lasix - creatinine 1.3-> 1.1 holding lasix - DC Lasix - recheck BMP in a.m. # Persistent fever -down a bit this am - 38.0 this am - still concerning with persistent bacteremia - surveillance cultures this am - cont IV abx # normocytic anemia- suspect some drop in hemoglobin secondary to blood draws blood cultures etc- no clinical losses oxygen saturations 96% on 2L - monitor # Acute hypoxic REsp Failure - Possible CHF exacerbation on admission. CXR w/ interstitial infiltrates, BNP 4100, LE edema, poor adherence to diuretic ECHO (reviewed) ejection fraction 50%- concern for vegetations - no indication for ongoing lasix at this time # MVR/AVR. Cont coumadin, daily INR 2.2 this am no at goal # HTN. Chronic, cont home RX # Chronic pain w/ continuous opiate dependency. - Cont oxy IR + tylenol + heat pad + lidoderm - PT/OT, will likely require SNF 2/2 deconditioning # Acute encephalopathy- appears resolved Diet. Cardiac, NPO for RUBIO PPx. High risk, on coumadin Code. DNR per patient, daughter is MDPOA I have discussed the case with Pharm D will increase anticoagulation to get closer to goal Objective: Vital Signs Temp Pulse Resp BP Pulse Ox 37.5 C 74 14 121/64 H 95 03/28/17 08:00 03/28/17 08:00 03/28/17 08:00 03/28/17 08:00 03/28/17 08:00 Laboratory Results 03/28/17 05:05 03/28/17 05:05 03/27/17 03/28/17 03/29/17 05:59 05:59 05:59 Intake Total 250 700 Output Total 175 850 Balance 75 -150 PT 24.8 SEC (12.0-15.0) H D 03/28/17 05:05 INR 2.22 (0.83-1.16) H 03/28/17 05:05 - Physical Exam Constitutional: chronically ill appearing Eyes: anicteric sclera Ears, Nose, Mouth, Throat: moist mucous membranes Cardiovascular: systolic murmur Respiratory: no respiratory distress Gastrointestinal: normoactive bowel sounds Genitourinary: no bladder fullness Skin: warm, normal color Musculoskeletal: No asymmetric calves Neurologic: AAOx3 Psychiatric: interacting appropriately Lymph, Heme, Immunologic: no cervical LAD ICD10 Worksheet Patient Problems: Problems Problem Status Onset Back pain Acute Clostridium difficile infection Acute ~03/30/17 Congestive heart failure (CHF) Acute
[2017-03-28] MEDS: ATENOLOL 25 MG TAB PO SCH (10:51)
[2017-03-28] MEDS: OMEGA-3 FATTY ACIDS 1,000 MG CAP PO SCH (10:53)
[2017-03-28] MEDS: MULTIVITAMINS W-MINERALS 1 EACH TAB PO SCH (10:53)
[2017-03-28] MEDS: CHOLECALCIFEROL VIT D3 1,000 UNITS TAB PO SCH (10:54)
--- NOTE | 2017-03-28 11:28 | PCMIDPN ---
Assessment/Plan: Assessment: Enterococcal bacteremia. High-grade. Initial LEROY showed possible vegetations. Leroy did not show any confirmation of this. 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 Will continue IV vancomycin with an increased to 750 mg q.12 hours given lowish trough level. Will also ask cardiothoracic surgery to deliver an opinion based on the non correlate give echo findings and persistent bacteremia. Plan: 1. Continue IV vancomycin at increased dose level. 2. Continue to follow vancomycin trough levels. 3. Obtain cardiovascular surgery consult. 4. Follow repeat blood cultures. Subjective: Patient is resting in a chair in her hospital room. Her friend and neighbor is present. She feels better since admission. She however is very worried that the infection all will return if she is not diagnosed and treated correctly. No new fevers or chills. Objective: Vancomycin # 2 Vital Signs Temp Pulse Resp BP Pulse Ox 37.5 C 74 14 121/64 H 95 03/28/17 08:00 03/28/17 10:51 03/28/17 08:00 03/28/17 10:51 03/28/17 08:00 Laboratory Results 03/28/17 05:05 03/28/17 05:05 03/27/17 03/28/17 03/29/17 05:59 05:59 05:59 Intake Total 250 700 Output Total 175 850 Balance 75 -150 ESR 34 MM/HR (0-30) H 03/25/17 17:10 C-Reactive Protein 11.8 mg/L (<10.0) H 03/25/17 17:10 - Physical Exam General Appearance: WD/WN, alert, no apparent distress, non-toxic Respiratory: lungs clear, normal breath sounds, No respiratory distress Cardiac/Chest: regular rate, rhythm, No tachycardia Skin: normal color, warm/dry, No rash Neuro/Psych: alert, normal mood/affect, oriented x 3 ICD10 Worksheet Patient Problems: Problems Problem Status Onset Back pain Acute Congestive heart failure (CHF) Acute
--- NOTE | 2017-03-28 14:38 | ASMTCMCOM ---
CM Note CM Note Notes: CM met w/ pt for dispo planning. OT is recommending SNF. CM is still awaiting recommendation from PT. Pt is not interested in going to a facility until she finds out what's going on w/ her medically. CM to follow. Date Signed: 03/28/2017 02:37 PM Electronically Signed By:ANALY Rosa
--- NOTE | 2017-03-28 15:13 | HOSPPROG ---
Hospitalist Progress Note Assessment/Plan: # Acute Persistent Enterococcus bacteremia- 2/2 blood cultures from admission- Prelim ECHO concerning for possible vegetation Surveillance 02/24/17 1/2 cultures + this am RUBIO (personally reviewed ) no vegetations - valves normal visually per cardiology - continue IV vancomycin- ID increasing dose - surveillance cultures per ID - no PICC yet as persistent bacteremia- will discuss with ID additional diagnostics # Thoracic back pain acute- thoracic spine x-ray (personally reviewed and interpreted) no acute fractures or findings consistent with bony abnormality thoracic MRI ( personally reviewed and interpreted) negative for epidural abscess - will continue p.r.n. pain meds # Acute kidney injury- suspect 2/2 lasix - creatinine 1.3-> 1.1 holding lasix - DC Lasix - recheck BMP in a.m. # Persistent fever -down a bit this am - 38.0 this am - still concerning with persistent bacteremia - surveillance cultures this am - cont IV abx # normocytic anemia- suspect some drop in hemoglobin secondary to blood draws blood cultures etc- no clinical losses oxygen saturations 96% on 2L - monitor # Acute hypoxic REsp Failure - Possible CHF exacerbation on admission. CXR w/ interstitial infiltrates, BNP 4100, LE edema, poor adherence to diuretic ECHO (reviewed) ejection fraction 50%- concern for vegetations - no indication for ongoing lasix at this time # MVR/AVR. Cont coumadin, daily INR 2.2 this am no at goal # HTN. Chronic, cont home RX # Chronic pain w/ continuous opiate dependency. - Cont oxy IR + tylenol + heat pad + lidoderm - PT/OT, will likely require SNF 2/2 deconditioning # Acute encephalopathy- appears resolved Diet. Cardiac, NPO for RUBIO PPx. High risk, on coumadin Code. DNR per patient, daughter is MDPOA I have discussed the case with ID - they will call cardiothoracic surgery today as risk of needing surgical intervention for valves increases with persistent bacteremia Subjective: feeling better today Objective: Vital Signs Temp Pulse Resp BP Pulse Ox 36.9 C 67 14 107/53 L 95 03/28/17 11:50 03/28/17 11:50 03/28/17 11:50 03/28/17 11:50 03/28/17 11:50 Laboratory Results 03/28/17 05:05 03/28/17 05:05 0903/28/17 03/29/17 05:59 05:59 05:59 Intake Total 250 700 Output Total 175 850 150 Balance 75 -150 -150 PT 24.8 SEC (12.0-15.0) H D 03/28/17 05:05 INR 2.22 (0.83-1.16) H 03/28/17 05:05 - Physical Exam Constitutional: chronically ill appearing, obese Eyes: anicteric sclera Ears, Nose, Mouth, Throat: moist mucous membranes Cardiovascular: regular rate and rhythym, systolic murmur Respiratory: no respiratory distress, No expiratory wheeze, No inspiratory crackles Gastrointestinal: normoactive bowel sounds Genitourinary: no bladder fullness Skin: normal color Musculoskeletal: No asymmetric calves Neurologic: AAOx3 Psychiatric: interacting appropriately Lymph, Heme, Immunologic: no cervical LAD ICD10 Worksheet Patient Problems: Problems Problem Status Onset Back pain Acute Congestive heart failure (CHF) Acute
--- NOTE | 2017-03-28 18:08 | WOCRNPDOC ---
WOCRN Advanced Assessment Note - Skin Integrity Problem, Advanced Assess Second Toe Dressing Type: Open to Air Wound Bed Constitution: Unstable Eschar (dry) Wound Edges: Attached Site Measurement - Head-to-Toe Length X Width X Depth (cm): 0.5x0.3xraised scab/ eschar Skin Integrity Problem Comment: Stalled dry wound on right foot dorsal second toe . No sign of infection. Needs moisture and dressing. Wound care will sign off.
[2017-03-28] MEDS: WARFARIN SODIUM 5 MG TAB PO SCH (19:52)
[2017-03-28] MEDS: VANCOMYCIN 750 MG in D5W 150 ML IV SCH (19:53)
[2017-03-29] MEDS: LEVOTHYROXINE 100 MCG TAB PO SCH (03:56)
[2017-03-29 04:16] LABS: INR 1.81 (0.83-1.16); PROTIME(PATIENT) 21.1 SEC (12.0-15.0)
[2017-03-29] MEDS: ATENOLOL 25 MG TAB PO SCH (08:37)
[2017-03-29] MEDS: OMEGA-3 FATTY ACIDS 1,000 MG CAP PO SCH (08:37)
[2017-03-29] MEDS: CHOLECALCIFEROL VIT D3 1,000 UNITS TAB PO SCH (08:37)
[2017-03-29] MEDS: MULTIVITAMINS W-MINERALS 1 EACH TAB PO SCH (08:37)
[2017-03-29] MEDS: oxyCODONE IR 5 MG TAB PO PRN ×2 (08:37→21:12)
[2017-03-29] MEDS: VANCOMYCIN 750 MG in D5W 150 ML IV SCH ×2 (08:38→21:12)
--- NOTE | 2017-03-29 17:08 | HOSPPROG ---
Hospitalist Progress Note Assessment/Plan: # Acute Persistent Enterococcus bacteremia- 2/2 blood cultures from admission- RUBIO (personally reviewed ) no vegetations Surveillance 02/24/17 2/2 cultures + - continue IV vancomycin- no gentamicin at this time - will draw additional surveillance today # Thoracic back pain acute- thoracic spine x-ray (personally reviewed and interpreted) no acute fractures or findings consistent with bony abnormality thoracic MRI ( personally reviewed and interpreted) negative for epidural abscess - will continue p.r.n. pain meds # Acute kidney injury- suspect 2/2 lasix - creatinine 1.3-> 1.1 holding lasix - DC Lasix - recheck BMP in a.m. # Persistent fever -continues to defervesce - surveillance cultures this am - cont IV abx # normocytic anemia- suspect some drop in hemoglobin secondary to blood draws blood cultures etc- no clinical losses oxygen saturations 96% on 2L - monitor # Acute hypoxic Resp Failure - Possible CHF exacerbation on admission. CXR w/ interstitial infiltrates, BNP 4100, LE edema, poor adherence to diuretic ECHO (reviewed) ejection fraction 50%- concern for vegetations - no indication for ongoing lasix at this time # MVR/AVR. Cont coumadin, daily INR 1.8 this am no at goal - increasing warfarin to 7.5 today recheck INR in a.m. # HTN. Chronic, cont home RX # Chronic pain w/ continuous opiate dependency. - Cont oxy IR + tylenol + heat pad + lidoderm - PT/OT, will likely require SNF 2/2 deconditioning # Acute encephalopathy- appears resolved Diet. Cardiac, NPO for RUBIO PPx. High risk, on coumadin Code. DNR per patient, daughter is MDPOA I have discussed the case with ID - we will not use in her distinct gentamicin at this time Subjective: back pain improved Objective: Vital Signs Temp Pulse Resp BP Pulse Ox 36.7 C 64 17 138/80 H 97 03/29/17 15:45 03/29/17 15:45 03/29/17 15:45 03/29/17 15:45 03/29/17 15:45 Laboratory Results 03/28/17 05:05 03/28/17 05:05 03/28/17 03/29/17 03/30/17 05:59 05:59 05:59 Intake Total 700 875 675 Output Total 850 700 300 Balance -150 175 375 PT 21.1 SEC (12.0-15.0) H 03/29/17 04:00 INR 1.81 (0.83-1.16) H 03/29/17 04:00 - Physical Exam Constitutional: chronically ill appearing Eyes: anicteric sclera Ears, Nose, Mouth, Throat: moist mucous membranes Cardiovascular: regular rate and rhythym, systolic murmur Respiratory: no respiratory distress, no rales or rhonchi Gastrointestinal: normoactive bowel sounds Genitourinary: no bladder fullness Skin: warm, normal color Musculoskeletal: No asymmetric calves Neurologic: AAOx3 Psychiatric: interacting appropriately, not anxious Lymph, Heme, Immunologic: no cervical LAD ICD10 Worksheet Patient Problems: Problems Problem Status Onset Back pain Acute Congestive heart failure (CHF) Acute
--- NOTE | 2017-03-29 18:23 | PCMIDPN ---
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 Reviewed with Cardiology noting that initial TTE finding of vegetation may have been artifactual rather than representing vegetation. Will need treatment as if prosthetic valve endocarditis even in the absence of specific echocardiographic findings given high-grade nature bacteremia. Have obtained CT scan of abdomen and pelvis to assess for etiology for enterococcal bacteremia which does not reveal focus other than underlying diverticulosis but no evidence of diverticulitis currently. Cultures reviewed from hospitalization at [facility] in early March which showed growth in her blood of E coli. Continue vancomycin pending repeat blood cultures. Will not add synergistic gentamicin given significant potential for nephrotoxicity with concomitant vancomycin. Isolate is susceptible to daptomycin in event difficulty with renal insufficiency while on vancomycin. Should have colonoscopy at some point to assess for other GI pathology as potential etiology for bacteremia. Will need to consider changing PICC line if bacteremia persists as this is also potential nidus for ongoing bacteremia and was placed on 03/25/2017. Time spent, greater than 35 minutes, of which greater than half was spent in education/counseling and coordination of care related to high-grade enterococcal bacteremia in the setting of prosthetic cardiac valves. 03/29/17 18:19 03/29/17 18:25 03/29/17 18:27 Subjective: Overall patient feels better but still feels quite fatigued. Objective: Vital Signs Temp Pulse Resp BP Pulse Ox 36.7 C 64 17 138/80 H 97 03/29/17 15:45 03/29/17 15:45 03/29/17 15:45 03/29/17 15:45 03/29/17 15:45 Laboratory Results 03/28/17 05:05 03/28/17 05:05 03/28/17 03/29/17 03/30/17 05:59 05:59 05:59 Intake Total 700 875 675 Output Total 850 700 500 Balance -150 175 175 ESR 34 MM/HR (0-30) H 03/25/17 17:10 C-Reactive Protein 11.8 mg/L (<10.0) H 03/25/17 17:10 Vancomycin # 3 Blood cultures 03/25/2017 and 03/27/2017 with growth of enterococcus faecalis which is ampicillin resistant Blood cultures 03/29/2017 pending RUBIO without evidence of vegetation and valves well-seated CT abdomen pelvis with diverticulosis without evidence of diverticulitis Blood culture 03/10/2017 at [facility] showing growth of E coli - Physical Exam General Appearance: alert, no apparent distress EENT: No scleral icterus, No conjunctival petechiae Respiratory: lungs clear, No respiratory distress Cardiac/Chest: regular rate, rhythm, other ([place] valve sounds present), No systolic murmur Abdomen: non-tender, No distended Skin: No embolic lesions ICD10 Worksheet Patient Problems: Problems Problem Status Onset Back pain Acute Congestive heart failure (CHF) Acute
[2017-03-29] MEDS ORDERED: WARFARIN SODIUM 2.5 MG TAB PO ONE (21:00)
[2017-03-29] MEDS: WARFARIN SODIUM 5 MG TAB PO SCH (21:12)
[2017-03-30] MEDS: oxyCODONE IR 5 MG TAB PO PRN ×2 (04:52→12:28)
[2017-03-30] MEDS: LEVOTHYROXINE 100 MCG TAB PO SCH (04:52)
[2017-03-30 05:30] LABS: INR 2.02 (0.83-1.16)
[2017-03-30 05:35] LABS: ANION GAP 5 mEq/L (8-16); CARBON DIOXIDE 27 mEq/l (22-31); CHLORIDE 100 mEq/L (97-110); GLOMERULAR FILTRATION RATE 53; GLUCOSE 137 mg/dL (70-100); POTASSIUM 3.5 mEq/L (3.5-5.2); SODIUM 132 mEq/L (134-144)
[2017-03-30] MEDS: ATENOLOL 25 MG TAB PO SCH (08:29)
[2017-03-30] MEDS: MULTIVITAMINS W-MINERALS 1 EACH TAB PO SCH (08:29)
[2017-03-30] MEDS: CHOLECALCIFEROL VIT D3 1,000 UNITS TAB PO SCH (08:29)
[2017-03-30] MEDS: OMEGA-3 FATTY ACIDS 1,000 MG CAP PO SCH (08:29)
[2017-03-30] MEDS ORDERED: VANCOMYCIN 125 MG/2.5 ML UDL PO SCH (09:45)
[2017-03-30] MEDS: VANCOMYCIN 750 MG in D5W 150 ML IV SCH (10:04)
--- NOTE | 2017-03-30 11:16 | PCMIDPN ---
Assessment/Plan: 1. 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 As outlined by Dr. Olivia, extremely concerned about nephrotoxicity associated with gentamicin, so we are opting not to treat this patient with an aminoglycoside. Given persistently positive blood cultures, will change vancomycin to daptomycin, 6 makes per kilos per day. CK during this admission was normal. Will also place peripheral IV and discontinue PICC line. Will likely repeat blood cultures Sunday. CT scan of the abdomen and pelvis with oral contrast only unrevealing for etiology of bacteremia. 2. C diff colonization: The patient states that she absolutely had no diarrhea prior to ingesting oral contrast for the CT scan. After she drank "2 boxes of juice for my CT" she developed severe diarrhea. Stool PCR was obtained, positive for C difficile. This almost certainly represents colonization and not infection. Unfortunately , she will continue to require contact isolation given this finding. Will discontinue oral vancomycin. I have been asked by the patient to contact her daughter to explain things.Leah at [phone], which I will do now. Subjective: Talked the patient at length about diarrhea. This developed after ingesting oral contrast. Absolutely no antecedent diarrhea. Feels mildly short of breath , but no different from baseline. Denies chest pain. No skin lesions. Objective: Vancomycin 750 q.12 hours day 4 T-max 37.2degrees Vital Signs Temp Pulse Resp BP Pulse Ox 36.8 C 65 13 113/63 89 L 03/30/17 08:00 03/30/17 08:00 03/30/17 08:00 03/30/17 08:00 03/30/17 08:00 Microbiology 03/27/17 18:00 Blood Culture - Final Blood Enterococcus Faecalis 03/27/17 11:03 Blood Culture - Final Blood Enterococcus Faecalis 03/29/17 23:20 Gastrointestinal Tract Panel (PCR) - Final Stool Clostridium Difficile Detected Laboratory Results 03/28/17 05:05 03/30/17 05:10 03/29/17 03/30/17 03/31/17 05:59 05:59 05:59 Intake Total 875 1025 165 Output Total 700 500 Balance 175 525 165 ESR 34 MM/HR (0-30) H 03/25/17 17:10 C-Reactive Protein 11.8 mg/L (<10.0) H 03/25/17 17:10 Repeat blood cultures 2/4 bottles with ongoing Enterococcus faecalis - Physical Exam General Appearance: alert, no apparent distress, obese EENT: pharynx normal, No thrush Respiratory: lungs clear Cardiac/Chest: other (Prosthetic valve clicks audible. A few extra beats. No murmur.) Extremities: other (PICC line right upper extremity without erythema or tenderness or swelling.) Abdomen: non-tender, soft Skin: other (Lower extremities pretibial area notable for pinkish macules.), No rash, No embolic lesions ICD10 Worksheet Patient Problems: Problems Problem Status Onset Back pain Acute Congestive heart failure (CHF) Acute
[2017-03-30] MEDS: NS IV SCH (12:30)
[2017-03-30] MEDS: DAPTOMYCIN IV SCH (12:30)
--- NOTE | 2017-03-30 14:37 | ASMTCMCOM ---
CM Note CM Note Notes: CM consulted w/ OT regarding POC. OT is recommending SNF but would support pts wishes to go home w/ HC. CM spoke w/ RN. Pt is on CDIF precaution. CM met w/ pt for dispo planning. Pt is agreeable to having HC. Referral made to [facility]. [facility] accepted pt when she is medically stable to d/c. Pt reports that her grandson, who is in his 20s may be able to live with her to help out. CM to follow. Date Signed: 03/30/2017 02:37 PM Electronically Signed By:ANALY Rosa
--- NOTE | 2017-03-30 18:42 | HOSPPROG ---
Hospitalist Progress Note Assessment/Plan: assessment: 81-year-old female presents with acute enterococcal bacteremia Plan: # Acute Persistent Enterococcus bacteremia- unclear source, persistent infxn on 03/29 BCx - RUBIO w/o overt veg - CT abd w/o clear source - will need colonoscopy - d/w Dr. Fernandes, we both agreed that removal of PICC, several days to demonstrate clearance w/ PIV, and then replacement of PICC is appropriate - cont on Vanco # Thoracic back pain acute- thoracic spine x-ray w/o acute fractures or findings consistent with bony abnormality - thoracic MRI negative for epidural abscess - will continue p.r.n. pain meds - if worsening, will get Lumbar MRI # Acute kidney injury- suspect 2/2 hypovolemia, held lasix, resolved - monitor BMP # Normocytic anemia- suspect some drop in hemoglobin secondary to blood draws blood cultures etc- no clinical losses, oxygen saturations 96% on 2L - monitor Hgb # Acute hypoxic Resp Failure and Possible acute systolic CHF exacerbation on admission- CXR w/ interstitial infiltrates, BNP 4100, LE edema, poor adherence to diuretic - s/p lasix, holding further dosing # MVR/AVR- Cont coumadin, daily INR, 2.0 # HTN- Chronic, cont home RX # Chronic pain w/ continuous opiate dependency- Cont oxy IR + tylenol + heat pad + lidoderm - PT/OT, will likely require SNF 2/2 deconditioning # Acute encephalopathy- appears resolved # Pleural effusions- present on CT (personally interpreted), will repeat lasix if SpO2 worsening Diet. Cardiac PPx. High risk, on coumadin Code. DNR per patient, daughter is MDPOA Dispo. ADD uncertain, pending clearance of BCx High level of medical complexity, high risk patient for worsening morbidity and/ or mortality 2/2 conditions above. Subjective: patient reports resolution of diarrhea Objective: Vital Signs Temp Pulse Resp BP Pulse Ox 36.8 C 64 11 L 117/63 91 L 03/30/17 14:45 03/30/17 14:45 03/30/17 14:45 03/30/17 14:45 03/30/17 14:45 Microbiology 03/27/17 18:00 Blood Culture - Final Blood Enterococcus Faecalis 03/27/17 11:03 Blood Culture - Final Blood Enterococcus Faecalis 03/29/17 23:20 Gastrointestinal Tract Panel (PCR) - Final Stool Clostridium Difficile Detected Laboratory Results 03/28/17 05:05 03/30/17 05:10 03/29/17 03/30/17 03/31/17 05:59 05:59 05:59 Intake Total 875 1025 665 Output Total 700 500 Balance 175 525 665 PT 23.0 SEC (12.0-15.0) H 03/30/17 05:10 INR 2.02 (0.83-1.16) H 03/30/17 05:10 - Physical Exam Constitutional: no apparent distress, not in pain, chronically ill appearing, No uncomfortable Cardiovascular: systolic murmur (III/ at sternum and apex), edema (1+ bilat LE ), No irregularly irregular, No tachycardia Respiratory: reduced air movement (bilat bases), No expiratory wheeze, No inspiratory crackles, No bronchial breath sounds Gastrointestinal: normoactive bowel sounds, soft, non-tender abdomen, no palpable masses Skin: other (macular lesions LLE, no significant erythema, crusted lesions RLE, no induration around prior PICC site) Neurologic: AAOx3, sensation intact bilaterally, weakness (3/5 motor bilat LE) Psychiatric: interacting appropriately, not anxious, not encephalopathic, thought process linear ICD10 Worksheet Patient Problems: Problems Problem Status Onset Clostridium difficile infection Acute ~03/30/17 Back pain Acute Congestive heart failure (CHF) Acute
[2017-03-30] MEDS: WARFARIN SODIUM 5 MG TAB PO SCH (20:04)
[2017-03-31] MEDS: LEVOTHYROXINE 100 MCG TAB PO SCH (04:38)
[2017-03-31] MEDS: FUROSEMIDE 40 MG TAB PO SCH ×2 (09:11→16:57)
[2017-03-31] MEDS: MULTIVITAMINS W-MINERALS 1 EACH TAB PO SCH (09:11)
[2017-03-31] MEDS: OMEGA-3 FATTY ACIDS 1,000 MG CAP PO SCH (09:11)
[2017-03-31] MEDS: CHOLECALCIFEROL VIT D3 1,000 UNITS TAB PO SCH (09:11)
[2017-03-31] MEDS: ATENOLOL 25 MG TAB PO SCH (09:12)
[2017-03-31 09:55] LABS: % IMMATURE GRANULYOCYTES 1.7 % (0.0-1.1); ADD DIFF? NO; ADD MORPH? NO; ADD SCAN? NO; ATYPICAL LYMPHOCYTE FLAG 20 (0-99); FRAGMENT RBC FLAG 0 (0-99); HEMOGLOBIN 10.5 g/dL (12.6-16.3); LEFT SHIFT FLG 10 (0-99); LIPEMIA HEMOLYSIS FLAG 90 (0-99); MEAN CELL HEMOGLOBIN 28.2 pg (27.9-34.1); MEAN CELL HEMOGLOBIN CONCENTR. 33.9 g/dL (32.4-36.7); MEAN CELL VOLUME 83.3 fL (81.5-99.8); MEAN PLATELET VOLUME 10.9 fL (8.7-11.7); PLATELET CLUMPS FLAG 0 (0-99); PLATELET COUNT 176 10^3/uL (150-400); RED BLOOD CELL COUNT 3.72 10^6/uL (4.18-5.33); RED CELL DISTRIBUTION WIDTH 13.8 % (11.5-15.2)
[2017-03-31 10:04] LABS: INR 2.27 (0.83-1.16); PROTIME(PATIENT) 25.2 SEC (12.0-15.0)
[2017-03-31 10:20] LABS: ANION GAP 6 mEq/L (8-16); CALCIUM 8.6 mg/dL (8.5-10.4); CARBON DIOXIDE 25 mEq/l (22-31); CHLORIDE 102 mEq/L (97-110); GLOMERULAR FILTRATION RATE 53; GLUCOSE 215 mg/dL (70-100); POTASSIUM 3.7 mEq/L (3.5-5.2); SODIUM 133 mEq/L (134-144)
[2017-03-31] MEDS: NS IV SCH (10:44)
[2017-03-31] MEDS: DAPTOMYCIN IV SCH (10:44)
[2017-03-31] MEDS: oxyCODONE IR 5 MG TAB PO PRN (11:39)
--- NOTE | 2017-03-31 13:47 | HOSPPROG ---
Hospitalist Progress Note Assessment/Plan: assessment: 81-year-old female presents with acute enterococcal bacteremia Plan: # Acute Persistent Enterococcus bacteremia- unclear source, persistent infxn on 03/29 BCx - RUBIO w/o overt veg - CT abd w/o clear source - will need colonoscopy - removed PICC 03/30 AM, repeat BCx 24hrs when recommended by ID - cont Dapto # Thoracic back pain acute- thoracic spine x-ray w/o acute fractures or findings consistent with bony abnormality - thoracic MRI negative for epidural abscess - will continue p.r.n. pain meds - d/w Dr. Otto Hoyt, he recs if worsening, will get Lumbar MRI # Acute kidney injury- suspect 2/2 hypovolemia, restarted lasix today, monitor Cr # Normocytic anemia- suspect some drop in hemoglobin secondary to blood draws blood cultures etc- no clinical losses, oxygen saturations 96% on 2L - monitor Hgb # Acute hypoxic Resp Failure and Possible acute systolic CHF exacerbation on admission- CXR w/ interstitial infiltrates, BNP 4100, LE edema, poor adherence to diuretic - restarted lasix and bblocker # MVR/AVR- Cont coumadin, daily INR, 2.0 # HTN- Chronic, cont home RX # Chronic pain w/ continuous opiate dependency- Cont oxy IR + tylenol + heat pad + lidoderm - PT/OT, will likely require SNF 2/2 deconditioning - experiencing signs of opiate withdraw today, will attempt to replicate home dosing (10mg HS, daily PRN 1-2x) # Acute encephalopathy- appears resolved # Pleural effusions- present on CT (personally interpreted), will repeat lasix if SpO2 worsening Diet. Cardiac PPx. High risk, on coumadin Code. DNR per patient, daughter is MDPOA Dispo. ADD uncertain, pending clearance of BCx High level of medical complexity, high risk patient for worsening morbidity and/ or mortality 2/2 conditions above. Subjective: reports she feels "squirrely", no diarrhea today Objective: Vital Signs Temp Pulse Resp BP Pulse Ox 36.7 C 70 15 123/69 H 94 03/31/17 11:09 03/31/17 11:09 03/31/17 07:19 03/31/17 11:09 03/31/17 11:09 Microbiology 03/27/17 18:00 Blood Culture - Final Blood Enterococcus Faecalis 03/27/17 11:03 Blood Culture - Final Blood Enterococcus Faecalis 03/29/17 23:20 Gastrointestinal Tract Panel (PCR) - Final Stool Clostridium Difficile Detected Laboratory Results 03/31/17 09:49 03/31/17 09:49 03/30/17 03/31/17 04/01/17 05:59 05:59 05:59 Intake Total 1025 815 Output Total 500 Balance 525 815 PT 25.2 SEC (12.0-15.0) H 03/31/17 09:49 INR 2.27 (0.83-1.16) H 03/31/17 09:49 - Physical Exam Constitutional: no apparent distress, not in pain, chronically ill appearing, obese, uncomfortable Cardiovascular: systolic murmur (opening and closing click at sternum, I/ at sternum), edema (1+ bilT LE), No irregularly irregular, No tachycardia Respiratory: reduced air movement (bilat bases on insp), No expiratory wheeze, No inspiratory crackles, No bronchial breath sounds, No respiratory distress Gastrointestinal: normoactive bowel sounds, soft, non-tender abdomen, no palpable masses, distension (obese) Skin: other (slightly raised morbiliform macules bilat LE w/o surrounding erythema/induration/tenderness) Neurologic: AAOx3, sensation intact bilaterally, No weakness Psychiatric: interacting appropriately, not anxious, not encephalopathic, thought process linear ICD10 Worksheet Patient Problems: Problems Problem Status Onset Clostridium difficile infection Acute ~03/30/17 Back pain Acute Congestive heart failure (CHF) Acute
--- NOTE | 2017-03-31 16:58 | PCMIDPN ---
Assessment/Plan: Assessment: Enterococcal bacteremia. High-grade. Initial LEROY showed possible vegetations. Leroy did not show any confirmation of this. 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 Patient changed to daptomycin 6 milligrams/kilogram. Tolerating well. Will need to get repeat blood cultures is most recent ones are growing from 03/29/17. Plan: 1. Continue IV daptomycin current level. 2. Follow repeat blood cultures. Subjective: Patient is resting in her hospital chair. She states she feels "wiped out." Denies any fevers or chills. No new complaints. Objective: Daptomycin # 2 Vital Signs Temp Pulse Resp BP Pulse Ox 36.8 C 66 15 158/47 H 95 03/31/17 16:00 03/31/17 16:00 03/31/17 16:00 03/31/17 16:00 03/31/17 16:00 Laboratory Results 03/31/17 09:49 03/31/17 09:49 03/30/17 03/31/17 04/01/17 05:59 05:59 05:59 Intake Total 1025 815 Output Total 500 Balance 525 815 ESR 34 MM/HR (0-30) H 03/25/17 17:10 C-Reactive Protein 11.8 mg/L (<10.0) H 03/25/17 17:10 - Physical Exam General Appearance: WD/WN, alert, no apparent distress, non-toxic Respiratory: lungs clear, normal breath sounds, No respiratory distress Cardiac/Chest: regular rate, rhythm, No tachycardia Extremities: non-tender, normal inspection Skin: normal color, warm/dry, No rash Neuro/Psych: alert, normal mood/affect, oriented x 3 ICD10 Worksheet Patient Problems: Problems Problem Status Onset Back pain Acute Clostridium difficile infection Acute ~03/30/17 Congestive heart failure (CHF) Acute
[2017-03-31] MEDS: oxyCODONE IR 5 MG TAB PO SCH (20:23)
[2017-03-31] MEDS: WARFARIN SODIUM 5 MG TAB PO SCH (20:24)
[2017-04-01 04:39] LABS: % IMMATURE GRANULYOCYTES 1.8 % (0.0-1.1); ABSOLUTE IMMATURE GRANULOCYTES 0.12 10^3/uL (0.00-0.10); ADD DIFF? NO; ADD MORPH? NO; ADD SCAN? NO; ATYPICAL LYMPHOCYTE FLAG 50 (0-99); FRAGMENT RBC FLAG 0 (0-99); HEMATOCRIT 28.4 % (38.0-47.0); HEMOGLOBIN 9.5 g/dL (12.6-16.3); LEFT SHIFT FLG 10 (0-99); LIPEMIA HEMOLYSIS FLAG 80 (0-99); MEAN CELL HEMOGLOBIN 28.1 pg (27.9-34.1); MEAN CELL HEMOGLOBIN CONCENTR. 33.5 g/dL (32.4-36.7); MEAN PLATELET VOLUME 10.6 fL (8.7-11.7); PLATELET CLUMPS FLAG 0 (0-99); PLATELET COUNT 216 10^3/uL (150-400); RED BLOOD CELL COUNT 3.38 10^6/uL (4.18-5.33)
[2017-04-01 04:50] LABS: INR 2.32 (0.83-1.16); PROTIME(PATIENT) 25.7 SEC (12.0-15.0)
[2017-04-01 04:51] LABS: ANION GAP 5 mEq/L (8-16); CALCIUM 8.3 mg/dL (8.5-10.4); CARBON DIOXIDE 28 mEq/l (22-31); CHLORIDE 102 mEq/L (97-110); CREATININE 1.1 mg/dL (0.6-1.0); GLOMERULAR FILTRATION RATE 47; GLUCOSE 131 mg/dL (70-100); POTASSIUM 3.6 mEq/L (3.5-5.2); SODIUM 135 mEq/L (134-144)
[2017-04-01] MEDS: LEVOTHYROXINE 100 MCG TAB PO SCH (06:27)
[2017-04-01] MEDS: MULTIVITAMINS W-MINERALS 1 EACH TAB PO SCH (08:31)
[2017-04-01] MEDS: FUROSEMIDE 40 MG TAB PO SCH ×2 (08:31→15:44)
[2017-04-01] MEDS: oxyCODONE IR 5 MG TAB PO PRN (08:31)
[2017-04-01] MEDS: CHOLECALCIFEROL VIT D3 1,000 UNITS TAB PO SCH (08:31)
[2017-04-01] MEDS: OMEGA-3 FATTY ACIDS 1,000 MG CAP PO SCH (08:31)
[2017-04-01] MEDS: ATENOLOL 25 MG TAB PO SCH (08:32)
[2017-04-01] MEDS: METOPROLOL SUCCINATE XR 25 MG TAB PO SCH ×2 (11:44→12:58)
[2017-04-01] MEDS: DAPTOMYCIN IV SCH (11:45)
[2017-04-01] MEDS: NS IV SCH (11:45)
[2017-04-01] MEDS: HYDROCORTISONE 1% CREAM TP SCH ×2 (15:44→20:37)
--- NOTE | 2017-04-01 15:49 | HOSPPROG ---
Hospitalist Progress Note Assessment/Plan: assessment: 81-year-old female presents with acute enterococcal bacteremia Plan: # Acute Persistent Enterococcus bacteremia- unclear source, persistent infxn on 03/29 BCx - RUBIO w/o overt veg - CT abd w/o clear source - will need colonoscopy - removed PICC 03/30 AM, d/w Dr. Hoyt, he recs repeat BCx today and monitor for clearance - cont Dapto, will need 2 weeks from neg cx date # Thoracic back pain acute- thoracic spine x-ray w/o acute fractures or findings consistent with bony abnormality - thoracic MRI negative for epidural abscess - will continue p.r.n. pain meds # Acute kidney injury- suspect 2/2 hypovolemia, restarted lasix, monitor Cr # Normocytic anemia- suspect some drop in hemoglobin secondary to blood draws blood cultures etc- no clinical losses, oxygen saturations 96% on 2L - monitor Hgb # Acute hypoxic Resp Failure and Possible acute systolic CHF exacerbation on admission- CXR w/ interstitial infiltrates, BNP 4100, LE edema, poor adherence to diuretic - increase lasix to 80mg bid and gauge effect - adjusted bblocker to metop succ 25 daily # MVR/AVR- Cont coumadin, daily INR, 2.3 # HTN- Chronic, cont home RX # Chronic pain w/ continuous opiate dependency- Cont oxy IR + tylenol + heat pad + lidoderm - PT/OT, will likely require SNF 2/2 deconditioning - experienced signs of opiate withdra, attempt to replicate home dosing (10mg HS , daily PRN 1-2x) # Acute encephalopathy- appears resolved # Pleural effusions- present on CT (personally interpreted), increasing lasix # Contact dermatitis- RUE at PICC dressing site, no cellulitis - start steroid cream Diet. Cardiac PPx. High risk, on coumadin Code. DNR per patient, daughter is MDPOA Dispo. ADD uncertain, pending clearance of BCx High level of medical complexity, high risk patient for worsening morbidity and/ or mortality 2/2 conditions above. Subjective: reports itching RUE, remains figity Objective: Vital Signs Temp Pulse Resp BP Pulse Ox 37.6 C 71 17 135/64 H 93 04/01/17 12:00 04/01/17 12:00 04/01/17 12:00 04/01/17 12:00 04/01/17 12:00 Laboratory Results 04/01/17 03:54 04/01/17 03:54 03/31/17 04/01/17 04/02/17 05:59 05:59 05:59 Intake Total 815 500 Balance 815 500 PT 25.7 SEC (12.0-15.0) H 04/01/17 03:54 INR 2.32 (0.83-1.16) H 04/01/17 03:54 - Physical Exam Constitutional: no apparent distress, not in pain, chronically ill appearing, obese, uncomfortable Cardiovascular: systolic murmur (II/ at sternum w/ opening snap and closing click), edema (2+ bilat LE), No irregularly irregular, No tachycardia Respiratory: reduced air movement (bilat bases), No expiratory wheeze, No inspiratory crackles, No bronchial breath sounds Gastrointestinal: normoactive bowel sounds, soft, non-tender abdomen, no palpable masses Skin: other (papular pruritic lesion RUE ventral surface w/o erythema, macular lesions bilat LE w/ induration/tenderness/erythema) Neurologic: AAOx3, sensation intact bilaterally, weakness (2/2 weight bilat LE) Psychiatric: interacting appropriately, not anxious, not encephalopathic, thought process linear ICD10 Worksheet Patient Problems: Problems Problem Status Onset Clostridium difficile infection Acute ~03/30/17 Back pain Acute Congestive heart failure (CHF) Acute
--- NOTE | 2017-04-01 17:00 | PCMIDPN ---
Assessment/Plan: Assessment: Enterococcal bacteremia. High-grade. Initial TTE showed possible vegetations. RUBIO did not show any confirmation of this. 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 Patient changed to daptomycin 6 milligrams/kilogram 2 days ago. Tolerating well. Obtaining repeat blood cultures today. Given that antibiotics changed to daptomycin and the PICC line was changed if she grows enterococcus again from most recent cultures then we will have to again investigate nidus. Plan: 1. Continue IV daptomycin current level. 2. Follow repeat blood cultures. 04/01/17 16:57 Subjective: Patient feels very tired but has no new complaint. No cough. No back pain. No fevers. Objective: Daptomycin # 3 Vital Signs Temp Pulse Resp BP Pulse Ox 37.3 C 62 18 143/78 H 94 04/01/17 16:00 04/01/17 16:00 04/01/17 16:00 04/01/17 16:00 04/01/17 16:00 Laboratory Results 04/01/17 03:54 04/01/17 03:54 03/31/17 04/01/17 04/02/17 05:59 05:59 05:59 Intake Total 815 500 Balance 815 500 ESR 34 MM/HR (0-30) H 03/25/17 17:10 C-Reactive Protein 11.8 mg/L (<10.0) H 03/25/17 17:10 - Physical Exam General Appearance: WD/WN, alert, no apparent distress, non-toxic Respiratory: lungs clear, normal breath sounds, No respiratory distress Cardiac/Chest: regular rate, rhythm, No tachycardia Skin: normal color, warm/dry, No rash Neuro/Psych: alert, normal mood/affect, oriented x 3 ICD10 Worksheet Patient Problems: Problems Problem Status Onset Back pain Acute Clostridium difficile infection Acute ~03/30/17 Congestive heart failure (CHF) Acute
[2017-04-01] MEDS: WARFARIN SODIUM 5 MG TAB PO SCH (20:39)
[2017-04-01] MEDS: oxyCODONE IR 5 MG TAB PO SCH (20:39)
[2017-04-02 04:43] LABS: % IMMATURE GRANULYOCYTES 1.9 % (0.0-1.1); ABSOLUTE IMMATURE GRANULOCYTES 0.12 10^3/uL (0.00-0.10); ADD DIFF? NO; ADD MORPH? NO; ADD SCAN? NO; ATYPICAL LYMPHOCYTE FLAG 50 (0-99); FRAGMENT RBC FLAG 0 (0-99); HEMATOCRIT 28.4 % (38.0-47.0); HEMOGLOBIN 9.3 g/dL (12.6-16.3); LEFT SHIFT FLG 10 (0-99); LIPEMIA HEMOLYSIS FLAG 80 (0-99); MEAN CELL HEMOGLOBIN 27.7 pg (27.9-34.1); MEAN CELL HEMOGLOBIN CONCENTR. 32.7 g/dL (32.4-36.7); MEAN CELL VOLUME 84.5 fL (81.5-99.8); MEAN PLATELET VOLUME 10.3 fL (8.7-11.7); PLATELET CLUMPS FLAG 40 (0-99); PLATELET COUNT 255 10^3/uL (150-400); RED BLOOD CELL COUNT 3.36 10^6/uL (4.18-5.33)
[2017-04-02 04:51] LABS: INR 2.28 (0.83-1.16); PROTIME(PATIENT) 25.3 SEC (12.0-15.0)
[2017-04-02 05:08] LABS: ANION GAP 8 mEq/L (8-16); CALCIUM 8.2 mg/dL (8.5-10.4); CARBON DIOXIDE 27 mEq/l (22-31); CHLORIDE 101 mEq/L (97-110); GLOMERULAR FILTRATION RATE 53; GLUCOSE 150 mg/dL (70-100); POTASSIUM 3.3 mEq/L (3.5-5.2); SODIUM 136 mEq/L (134-144)
[2017-04-02] MEDS: LEVOTHYROXINE 100 MCG TAB PO SCH (05:27)
[2017-04-02] MEDS: OMEGA-3 FATTY ACIDS 1,000 MG CAP PO SCH (08:47)
[2017-04-02] MEDS: FUROSEMIDE 40 MG TAB PO SCH ×2 (08:47→14:46)
[2017-04-02] MEDS: METOPROLOL SUCCINATE XR 25 MG TAB PO SCH (08:48)
[2017-04-02] MEDS: MULTIVITAMINS W-MINERALS 1 EACH TAB PO SCH (08:48)
[2017-04-02] MEDS: CHOLECALCIFEROL VIT D3 1,000 UNITS TAB PO SCH (08:48)
[2017-04-02] MEDS: NS IV SCH (08:55)
[2017-04-02] MEDS: DAPTOMYCIN IV SCH (08:55)
[2017-04-02] MEDS: oxyCODONE IR 5 MG TAB PO PRN (09:07)
[2017-04-02 10:35] LABS: HEMOGLOBIN A1C 7.1 % (4.0-6.0)
[2017-04-02] MEDS ORDERED: POTASSIUM CL 20 MEQ TAB PO ONE (11:40)
[2017-04-02] MEDS: HYDROCORTISONE 1% CREAM TP SCH ×2 (13:04→20:07)
--- NOTE | 2017-04-02 13:47 | PCMIDPN ---
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 Blood cultures repeated on 04/01/2017 to assess for clearing. PICC line also discontinued last week given this was placed in setting of active bacteremia. Continue daptomycin. Follow up repeat blood cultures as available. If persistently positive, think will require repeat echocardiogram to reassess prosthetic valves. * Positive C difficile toxin: Consistent with colonization as diarrhea occurred after receiving oral contrast for CT scan and has not persisted. No targeted therapy needed. Continue contact precautions. 04/02/17 13:44 Subjective: Complains of fatigue good overall feels better. No diarrhea. Objective: Vital Signs Temp Pulse Resp BP Pulse Ox 36.7 C 71 16 133/57 H 95 04/02/17 07:37 04/02/17 07:37 04/02/17 07:37 04/02/17 07:37 04/02/17 07:37 Laboratory Results 04/02/17 04:22 04/02/17 04:22 04/01/17 04/02/17 04/03/17 05:59 05:59 05:59 Intake Total 500 350 110 Balance 500 350 110 ESR 34 MM/HR (0-30) H 03/25/17 17:10 C-Reactive Protein 11.8 mg/L (<10.0) H 03/25/17 17:10 Daptomycin # 4, antibiotics # 7 Blood cultures 04/01/2017 pending - Physical Exam General Appearance: alert, no apparent distress EENT: No scleral icterus, No conjunctival petechiae Respiratory: lungs clear, No respiratory distress Cardiac/Chest: regular rate, rhythm, other (Ray valve click present) Extremities: No inflammation Abdomen: non-tender, No distended Skin: other (Small ulceration over right 2nd toe healing well) ICD10 Worksheet Patient Problems: Problems Problem Status Onset Back pain Acute Clostridium difficile infection Acute ~03/30/17 Congestive heart failure (CHF) Acute
--- NOTE | 2017-04-02 15:00 | ASMTCMCOM ---
CM Note CM Note Notes: -04/02/2017 Case Management Note: Faxed IV antibiotic info to [facility]. Pt has Home Care arranged through [facility] who will provide the RN for the IV infusions. [facility] will also provide Home Health PT. Over the weekend, pt accepted to [facility] rehab. Edmund from [facility] visited w/pt today. Pt concerned that SNF is "place where people go to ". Educated pt that [facility] is only rehab and focused on short length of stays. Pt will need to decide at d/c which option is preferable. As of today, pt prefers to go home w/home care and have grandon live with her. Anticipating d/c mid to later part of the week. Case Management to follow. CM Note CM consulted w/ OT regarding POC. OT is recommending SNF but would support pts wishes to go home w/ HC. CM spoke w/ RN. Pt is on CDIF precaution. CM met w/ pt for dispo planning. Pt is agreeable to having HC. Referral made to [facility]. [facility] has accepted pt when she is medically stable to d/c. Pt reports that her grandson, who is in his 20s may be able to live with her to help out. CM to follow. Date Signed: 04/02/2017 03:00 PM Electronically Signed By:Mel Munoz RN
[2017-04-02] MEDS: ACETAMINOPHEN 325 MG TAB PO PRN (19:58)
[2017-04-02] MEDS: oxyCODONE IR 5 MG TAB PO SCH (20:06)
[2017-04-02] MEDS: WARFARIN SODIUM 5 MG TAB PO SCH (20:06)
--- NOTE | 2017-04-02 21:20 | HOSPPROG ---
Hospitalist Progress Note Assessment/Plan: assessment: 81-year-old female presents with acute enterococcal bacteremia Plan: # Acute Persistent Enterococcus bacteremia- unclear source, persistent infxn on 03/29 BCx - RUBIO w/o overt veg - CT abd w/o clear source - will need colonoscopy - removed PICC 03/30 AM, repeat BCx w/o growth - cont Dapto, will need 2 weeks from neg cx date - d/w Dr. Olivia, if Cx positive, he recs it will require additional spinal imaging / probably repeat RUBIO # Thoracic back pain acute- thoracic spine x-ray w/o acute fractures or findings consistent with bony abnormality - thoracic MRI negative for epidural abscess - will continue p.r.n. pain meds, HS oxy IR 10 scheduled - counseled patient that her discomfort of the past 2 days was likely opiate withdraw, and, now that she is receiving the dosage HS that she usually takes at home, + day dose PRN, she is no longer experiencing withdraw # Acute kidney injury- suspect 2/2 hypovolemia, restarted lasix, monitor Cr # Normocytic anemia- suspect some drop in hemoglobin secondary to blood draws blood cultures etc- no clinical losses, oxygen saturations 96% on 2L - monitor Hgb # Acute hypoxic Resp Failure and acute systolic CHF exacerbation on admission- CXR w/ interstitial infiltrates, BNP 4100, LE edema, poor adherence to diuretic - increased lasix to 80mg bid and gauge effect - adjusted bblocker to metop succ 25 daily # MVR/AVR- Cont coumadin, daily INR, 2.3 # HTN- Chronic, cont home RX # Chronic pain w/ continuous opiate dependency- Cont oxy IR + tylenol + heat pad + lidoderm - PT/OT, will likely require SNF 2/2 deconditioning # Acute encephalopathy- appears resolved # Pleural effusions- present on CT (personally interpreted), increasing lasix # Contact dermatitis- RUE at PICC dressing site, no cellulitis - started steroid cream Diet. Cardiac PPx. High risk, on coumadin Code. DNR per patient, daughter is MDPOA Dispo. ADD uncertain, pending clearance of BCx Subjective: feeling more settled today, doesn't want to "give up", counseled about care plan Objective: Vital Signs Temp Pulse Resp BP Pulse Ox 38.3 C H 94 19 158/84 H 94 04/02/17 20:00 04/02/17 20:00 04/02/17 20:00 04/02/17 20:00 04/02/17 20:00 Laboratory Results 04/02/17 04:22 04/02/17 04:22 04/01/17 04/02/17 04/03/17 05:59 05:59 05:59 Intake Total 500 350 110 Balance 500 350 110 PT 25.3 SEC (12.0-15.0) H 04/02/17 04:22 INR 2.28 (0.83-1.16) H 04/02/17 04:22 - Time Spent With Patient Time Spent with Patient: greater than 35 minutes Time Spent with Patient: Greater than 35 minutes spent on this patients care, greater than 50% of time spent counseling, educating, and coordinating care regarding the above mentioned plan. - Physical Exam Constitutional: not in pain, chronically ill appearing, obese Cardiovascular: systolic murmur (II/ at sternum w/ open snap, close click), edema (2+ bilat LE), No irregularly irregular, No tachycardia Respiratory: no respiratory distress, no rales or rhonchi, clear to auscultation Gastrointestinal: normoactive bowel sounds, soft, non-tender abdomen, no palpable masses Skin: other (raised red plaques bilat LE w/o surrounding erythema) Neurologic: AAOx3, sensation intact bilaterally Psychiatric: interacting appropriately, not anxious, not encephalopathic, thought process linear ICD10 Worksheet Patient Problems: Problems Problem Status Onset Clostridium difficile infection Acute ~03/30/17 Back pain Acute Congestive heart failure (CHF) Acute
[2017-04-03 04:23] LABS: % IMMATURE GRANULYOCYTES 1.7 % (0.0-1.1); ABSOLUTE IMMATURE GRANULOCYTES 0.12 10^3/uL (0.00-0.10); ADD DIFF? NO; ADD MORPH? NO; ADD SCAN? NO; ATYPICAL LYMPHOCYTE FLAG 30 (0-99); FRAGMENT RBC FLAG 0 (0-99); HEMATOCRIT 30.4 % (38.0-47.0); LEFT SHIFT FLG 10 (0-99); LIPEMIA HEMOLYSIS FLAG 80 (0-99); MEAN CELL HEMOGLOBIN 27.6 pg (27.9-34.1); MEAN CELL HEMOGLOBIN CONCENTR. 32.9 g/dL (32.4-36.7); PLATELET CLUMPS FLAG 20 (0-99); PLATELET COUNT 282 10^3/uL (150-400); RED BLOOD CELL COUNT 3.62 10^6/uL (4.18-5.33); RED CELL DISTRIBUTION WIDTH 13.9 % (11.5-15.2)
[2017-04-03 04:33] LABS: INR 2.15 (0.83-1.16); PROTIME(PATIENT) 24.2 SEC (12.0-15.0)
[2017-04-03 04:38] LABS: ANION GAP 6 mEq/L (8-16); CALCIUM 8.7 mg/dL (8.5-10.4); CARBON DIOXIDE 30 mEq/l (22-31); CHLORIDE 97 mEq/L (97-110); CREATININE 1.2 mg/dL (0.6-1.0); GLOMERULAR FILTRATION RATE 43; GLUCOSE 119 mg/dL (70-100); MAGNESIUM 1.8 mg/dL (1.6-2.3); POTASSIUM 3.6 mEq/L (3.5-5.2); SODIUM 133 mEq/L (134-144)
[2017-04-03] MEDS: LEVOTHYROXINE 100 MCG TAB PO SCH (06:22)
[2017-04-03] MEDS ORDERED: POTASSIUM CL 20 MEQ TAB PO ONE (08:33)
[2017-04-03] MEDS ORDERED: metFORMIN HCL 500 MG TAB PO SCH (08:45)
[2017-04-03] MEDS: DAPTOMYCIN IV SCH (09:46)
[2017-04-03] MEDS: NS IV SCH (09:46)
[2017-04-03] MEDS: HYDROCORTISONE 1% CREAM TP SCH ×2 (09:57→21:56)
[2017-04-03] MEDS: CHOLECALCIFEROL VIT D3 1,000 UNITS TAB PO SCH (09:58)
[2017-04-03] MEDS: MULTIVITAMINS W-MINERALS 1 EACH TAB PO SCH (09:58)
[2017-04-03] MEDS: OMEGA-3 FATTY ACIDS 1,000 MG CAP PO SCH (09:58)
[2017-04-03] MEDS: METOPROLOL SUCCINATE XR 25 MG TAB PO SCH (09:59)
[2017-04-03] MEDS: INSULIN GLARGINE 100 UNITS/ML SYRINGE SC SCH (10:40)
[2017-04-03] MEDS: oxyCODONE IR 5 MG TAB PO PRN (10:40)
[2017-04-03] MEDS: FUROSEMIDE 40 MG TAB PO SCH ×2 (11:26→14:40)
--- NOTE | 2017-04-03 11:53 | HOSPPROG ---
Hospitalist Progress Note Assessment/Plan: Assessment: 81-year-old female presents with acute enterococcal bacteremia, persistent Plan: # Acute Persistent Enterococcus bacteremia- unclear source, persistent infxn on 03/29 BCx, recurrent fever o/n - RUBIO w/o overt veg - CT abd w/o clear source - will need colonoscopy - removed PICC 03/30 AM, repeat BCx w/o growth (36hrs, d/w Dr. Francis, she recs awaiting 48hrs tomorrow AM to replace PICC) - cont Dapto, will need 2 weeks from neg cx date # Thoracic back pain acute- thoracic spine x-ray w/o acute fractures or findings consistent with bony abnormality - thoracic MRI negative for epidural abscess # Acute kidney injury- suspect 2/2 hypovolemia initially - mild rise in Cr w/ increase in lasix to 80mg bid yesterday, reduced back to home dose 40mg bid today # Normocytic anemia- suspect some drop in hemoglobin secondary to blood draws blood cultures etc- no clinical losses, oxygen saturations 96% on 2L - monitor Hgb # Acute hypoxic Resp Failure and acute systolic CHF exacerbation, POA- CXR w/ interstitial infiltrates, BNP 4100, LE edema, poor adherence to diuretic as outpt - reduced lasix back to home dose 40mg bid, patient agreeable to this dosage - adjusted bblocker to metop succ 25 daily, can uptitrate as outpt # MVR/AVR- Cont coumadin, daily INR, 2.2 # HTN- Chronic, cont home RX # Chronic pain w/ continuous opiate dependency- Cont oxy IR + tylenol + heat pad + lidoderm - will continue p.r.n. pain meds, HS oxy IR 10 scheduled - counseled patient that her discomfort over the weekend was likely opiate withdraw, and, now that she is receiving the dosage HS that she usually takes at home, + day dose PRN, she is no longer experiencing withdraw # Acute encephalopathy- appears resolved # Pleural effusions- present on CT # Contact dermatitis- RUE at PICC dressing site, no cellulitis - started steroid cream Diet. Cardiac PPx. High risk, on coumadin Code. DNR per patient, daughter is MDPOA Dispo. ADD uncertain, pending clearance of BCx, will require SNF High level of ongoing medical complexity, high risk of worsening morbidity/ mortality, 2/2 issues outlined above. Subjective: patient fatigued from so much peeing yesterday, no diarrhea Objective: Vital Signs Temp Pulse Resp BP Pulse Ox 36.3 C 79 14 134/62 H 93 04/03/17 08:00 04/03/17 08:00 04/03/17 08:00 04/03/17 08:00 04/03/17 08:00 Laboratory Results 04/03/17 03:37 04/03/17 03:37 04/02/17 04/03/17 04/04/17 05:59 05:59 05:59 Intake Total 350 460 Output Total 300 Balance 350 160 PT 24.2 SEC (12.0-15.0) H 04/03/17 03:37 INR 2.15 (0.83-1.16) H 04/03/17 03:37 - Physical Exam Constitutional: no apparent distress, not in pain, chronically ill appearing, obese, No uncomfortable Cardiovascular: systolic murmur (II/ at sternum, opening snap/closing click), edema (2+ bilat LE), No irregularly irregular, No tachycardia Respiratory: reduced air movement (bilat bases), No expiratory wheeze, No inspiratory crackles, No bronchial breath sounds Gastrointestinal: normoactive bowel sounds, soft, non-tender abdomen, no palpable masses, No distension Skin: other (red plaques bilat LE w/o surrounding erythema, not overtly ulcerated, no induration/fluctuance) Neurologic: AAOx3, sensation intact bilaterally, No facial droop Psychiatric: interacting appropriately, not anxious, not encephalopathic, thought process linear ICD10 Worksheet Patient Problems: Problems Problem Status Onset Clostridium difficile infection Acute ~03/30/17 Back pain Acute Congestive heart failure (CHF) Acute
[2017-04-03] MEDS ORDERED: oxyCODONE IR 5 MG TAB PO PRN (11:55)
--- NOTE | 2017-04-03 15:35 | ASMTCMCOM ---
CM Note CM Note Notes: Chart reviewed. Met with patient to review dc POC. Patient wishes to go home with HHC and IV infusion. She reports she has good support, her grandson is to stay with her and she has adaptive equipment and modifications built into her home to facilitate her independence and mobility. Awaiting final blood cultures to proceed with picc and [employer] ANTB plan per ID. [facility] services co-ordinator Tracey ham, ([phone]). Updates to referals Interim and Home infusion services. CM to follow. Date Signed: 04/03/2017 03:34 PM Electronically Signed By:Mary Kay Quiroga RN
--- NOTE | 2017-04-03 16:33 | PCMIDPN ---
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 May consider even pushing further to 10mg/kg --duration of antibiotic 4-6 weeks Daptomycin 6mg/kg # 5, antibiotics # 8 Blood cultures 04/01/2017 NGTD Subjective: Getting up on her own. Mild SOB when off O2 mild constipation Objective: Vital Signs Temp Pulse Resp BP Pulse Ox 37.0 C 74 16 120/70 94 04/03/17 15:49 04/03/17 15:49 04/03/17 15:49 04/03/17 15:49 04/03/17 15:49 Laboratory Results 04/03/17 03:37 04/03/17 03:37 04/02/17 04/03/17 04/04/17 05:59 05:59 05:59 Intake Total 350 460 Output Total 300 Balance 350 160 ESR 34 MM/HR (0-30) H 03/25/17 17:10 C-Reactive Protein 11.8 mg/L (<10.0) H 03/25/17 17:10 - Physical Exam General Appearance: alert, no apparent distress EENT: No scleral icterus Respiratory: other (decreased bs bases) Neck: supple Cardiac/Chest: regular rate, rhythm, systolic murmur (L sternal border), other ( mechanical click) Extremities: pedal edema, No calf tenderness, No inflammation Abdomen: normal bowel sounds, non-tender, soft Neuro/Psych: alert, normal mood/affect, oriented x 3 ICD10 Worksheet Patient Problems: Problems Problem Status Onset Back pain Acute Clostridium difficile infection Acute ~03/30/17 Congestive heart failure (CHF) Acute
[2017-04-03] MEDS ORDERED: ALTEPLASE 2 MG VIAL IVP PRN (16:35)
[2017-04-03] MEDS: oxyCODONE IR 5 MG TAB PO SCH (21:49)
[2017-04-03] MEDS: WARFARIN SODIUM 5 MG TAB PO SCH (21:49)
[2017-04-04 05:26] LABS: % IMMATURE GRANULYOCYTES 1.6 % (0.0-1.1); ABSOLUTE IMMATURE GRANULOCYTES 0.11 10^3/uL (0.00-0.10); ABSOLUTE NRBC COUNT 0.02 10^3/uL (0-0.01); ADD DIFF? NO; ADD MORPH? NO; ADD SCAN? NO; ATYPICAL LYMPHOCYTE FLAG 40 (0-99); FRAGMENT RBC FLAG 0 (0-99); HEMATOCRIT 28.6 % (38.0-47.0); HEMOGLOBIN 9.4 g/dL (12.6-16.3); LEFT SHIFT FLG 20 (0-99); LIPEMIA HEMOLYSIS FLAG 80 (0-99); MEAN CELL HEMOGLOBIN 28.1 pg (27.9-34.1); MEAN CELL HEMOGLOBIN CONCENTR. 32.9 g/dL (32.4-36.7); MEAN CELL VOLUME 85.6 fL (81.5-99.8); MEAN PLATELET VOLUME 10.2 fL (8.7-11.7); NRBC-AUTO% 0.3 % (0.0-0.2); PLATELET CLUMPS FLAG 0 (0-99); PLATELET COUNT 283 10^3/uL (150-400); RED BLOOD CELL COUNT 3.34 10^6/uL (4.18-5.33); RED CELL DISTRIBUTION WIDTH 13.9 % (11.5-15.2)
[2017-04-04 05:36] LABS: INR 2.09 (0.83-1.16); PROTIME(PATIENT) 23.6 SEC (12.0-15.0)
[2017-04-04 05:45] LABS: ANION GAP 6 mEq/L (8-16); CALCIUM 8.8 mg/dL (8.5-10.4); CARBON DIOXIDE 32 mEq/l (22-31); CHLORIDE 99 mEq/L (97-110); CREATININE 1.2 mg/dL (0.6-1.0); GLOMERULAR FILTRATION RATE 43; GLUCOSE 136 mg/dL (70-100); MAGNESIUM 1.9 mg/dL (1.6-2.3); POTASSIUM 4.1 mEq/L (3.5-5.2); SODIUM 137 mEq/L (134-144)
[2017-04-04] MEDS: LEVOTHYROXINE 100 MCG TAB PO SCH (06:11)
[2017-04-04 07:51] VITALS: O2SAT 94
--- NOTE | 2017-04-04 08:28 | HOSPPROG ---
Hospitalist Progress Note Assessment/Plan: Assessment: 81-year-old female presents with acute enterococcal bacteremia, persistent Plan: # Acute Persistent Enterococcus bacteremia - unclear source, persistent infxn on 03/29 BCx, recurrent fever o/n - RUBIO w/o overt veg - CT abd w/o clear source - will need colonoscopy - removed PICC 03/30 AM, repeat BCx w/o growth, likely to replace PICC today - cont Dapto, will need 2 weeks from neg cx date # Thoracic back pain acute- thoracic spine x-ray w/o acute fractures or findings consistent with bony abnormality - thoracic MRI negative for epidural abscess # Acute kidney injury- suspect 2/2 hypovolemia initially - mild rise in Cr w/ increase in lasix to 80mg bid yesterday, reduced back to home dose 40mg bid today # Normocytic anemia- suspect some drop in hemoglobin secondary to blood draws blood cultures etc- no clinical losses, oxygen saturations 96% on 2L - monitor Hgb # Acute hypoxic Resp Failure and acute systolic CHF exacerbation, POA- CXR w/ interstitial infiltrates, BNP 4100, LE edema, poor adherence to diuretic as outpt - reduced lasix back to home dose 40mg bid, patient agreeable to this dosage - adjusted bblocker to metop succ 25 daily, can uptitrate as outpt # MVR/AVR- Cont coumadin, daily INR, 2.2 # HTN- Chronic, cont home RX # DM - a1c 7.2, started low dose lantus # Chronic pain w/ continuous opiate dependency- Cont oxy IR + tylenol + heat pad + lidoderm. Had some w/d, improved with resuming outpt meds - will continue p.r.n. pain meds, HS oxy IR 10 scheduled # Acute encephalopathy- appears resolved # Pleural effusions- present on CT # Contact dermatitis- RUE at PICC dressing site, no cellulitis - started steroid cream Diet. Cardiac PPx. High risk, on coumadin Code. DNR per patient, daughter is MDPOA Dispo. ADD uncertain, pending clearance of BCx, will require SNF High level of ongoing medical complexity, high risk of worsening morbidity/ mortality, 2/2 issues outlined above. Objective: Vital Signs Temp Pulse Resp BP Pulse Ox 37.3 C 72 16 108/64 94 04/04/17 07:50 04/04/17 07:50 04/04/17 07:50 04/04/17 07:50 04/04/17 07:50 Microbiology 03/29/17 13:20 Blood Culture - Final Blood Enterococcus Faecalis 03/29/17 10:17 Blood Culture - Final Blood Enterococcus Faecalis Laboratory Results 04/04/17 03:53 04/04/17 03:53 04/03/17 04/04/17 04/05/17 05:59 05:59 05:59 Intake Total 460 1150 Output Total 300 750 Balance 160 400 PT 23.6 SEC (12.0-15.0) H 04/04/17 03:53 INR 2.09 (0.83-1.16) H 04/04/17 03:53 ICD10 Worksheet Patient Problems: Problems Problem Status Onset Back pain Acute Clostridium difficile infection Acute ~03/30/17 Congestive heart failure (CHF) Acute
[2017-04-04] MEDS: METOPROLOL SUCCINATE XR 25 MG TAB PO SCH (09:05)
[2017-04-04] MEDS: MULTIVITAMINS W-MINERALS 1 EACH TAB PO SCH (09:05)
[2017-04-04] MEDS: CHOLECALCIFEROL VIT D3 1,000 UNITS TAB PO SCH (09:05)
[2017-04-04] MEDS: INSULIN GLARGINE 100 UNITS/ML SYRINGE SC SCH (09:05)
[2017-04-04] MEDS: FUROSEMIDE 40 MG TAB PO SCH (09:06)
[2017-04-04] MEDS: OMEGA-3 FATTY ACIDS 1,000 MG CAP PO SCH (09:06)
[2017-04-04] MEDS: HYDROCORTISONE 1% CREAM TP SCH (09:06)
[2017-04-04] MEDS ORDERED: DAPTOMYCIN IV SCH (10:00)
[2017-04-04] MEDS ORDERED: NS IV SCH (10:00)
[2017-04-04 11:18] VITALS: BP 123/63; PULSE 76; RESP 18; TEMP 97.7
--- NOTE | 2017-04-04 11:28 | PCMIDPN ---
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 May consider even pushing further to 10mg/kg --duration of antibiotic 6 weeks --will transition care back to [place] infectious disease, I will contact the ID doctors # Cdiff colonization: no Rx, contact isolation while in hospital Daptomycin 8mg/kg # 6, antibiotics #9 Blood cultures 04/01/2017 NGTD Subjective: Patient feeling well, desires to go home Continued constipation Objective: Vital Signs Temp Pulse Resp BP Pulse Ox 36.5 C 76 18 123/63 H 94 04/04/17 11:17 04/04/17 11:17 04/04/17 11:17 04/04/17 11:17 04/04/17 11:17 Microbiology 03/29/17 13:20 Blood Culture - Final Blood Enterococcus Faecalis 03/29/17 10:17 Blood Culture - Final Blood Enterococcus Faecalis Laboratory Results 04/04/17 03:53 04/04/17 03:53 04/03/17 04/04/17 04/05/17 05:59 05:59 05:59 Intake Total 460 1150 Output Total 300 750 Balance 160 400 ESR 34 MM/HR (0-30) H 03/25/17 17:10 C-Reactive Protein 11.8 mg/L (<10.0) H 03/25/17 17:10 - Physical Exam General Appearance: alert, no apparent distress, obese Respiratory: No respiratory distress, No accessory muscle use Neck: supple Cardiac/Chest: regular rate, rhythm, systolic murmur, other (mechanical click) Extremities: pedal edema (appears to be chronic venous insuffiency) Abdomen: non-tender, soft Pelvic Exam: No willett Skin: pallor, No jaundice, No rash Neuro/Psych: alert, normal mood/affect, oriented x 3 - Line/s RUE PICC Lines: No drainage, No erythema ICD10 Worksheet Patient Problems: Problems Problem Status Onset Back pain Acute Clostridium difficile infection Acute ~03/30/17 Congestive heart failure (CHF) Acute
--- NOTE | 2017-04-04 11:29 | PDIAF ---
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 Code Status: Do Not Resuscitate - Medication Management Discharge Medications: Medications to Continue on Transfer Aflibercept [Eylea] 2 mg IO Q28D 03/25/17 [Last Taken 03/12/17] Alendronate Sodium [Fosamax 70 MG (*)] 70 mg PO WE@0700 03/25/17 [Last Taken Unknown] Atenolol [Tenormin 25 mg (*)] 12.5 mg PO DAILY 03/25/17 [Last Taken 03/27/17] Cholecalciferol Vit D3 [Vitamin D3 (*)] 1,000 units PO DAILY 03/25/17 [Last Taken Unknown] Fish Oil/Dha/Epa [Fish Oil 1,200 mg Fish Oil] 1 each PO DAILY 03/25/17 [Last Taken Unknown] Furosemide [Lasix 40 MG (*)] 40 mg PO BIDDIUR 03/25/17 [Last Taken 03/24/17] Herbals/Supplements -Info Only 1 ea PO DAILY 03/25/17 [Last Taken Unknown] Hydrocodone/Acetaminophen [[place] 5/325 (*)] 1 - 2 tab PO Q4H PRN 03/25/17 [Last Taken 03/25/17 12:00 2 TABS] Levothyroxine [Synthroid 100 mcg (*)] 100 mcg PO DAILY06 03/25/17 [Last Taken ] Multivit-Min/Iron Fum/Folic AC [Vfdpl-Qdnnucu-Uwlfkrhq Tablet] 1 each PO DAILY 03/25/17 [Last Taken Unknown] Mupirocin 2% [Bactroban 2%] 1 janneth TP DAILY PRN 03/25/17 [Last Taken Unknown] Warfarin Sodium [Coumadin 5MG (*)] 5 mg PO HS 03/25/17 [Last Taken 03/24/17] Qc Chemist Antibiotics: daptomycin 720mg IV daily Alf Antibiotic Stop Date: 05/13/17 Discharge Medications: Refer to the Discharge Home Medication list for PRN reason. PICC Care - Routine: Yes - Orders Services needed: Home Care, Registered Nurse, Physical Therapy, Occupational Therapy Home Care Face to Face: I certify that this patient was under my care and that I had the required nodu-ur-lwqy encounter meeting the encounter requirements on the discharge day. My findings support the fact that the patient is homebound as defined in Home Care Face to Face Continued: CMS Chapter 7 Medicare Benefits Manual 30.1.1 , The condition of the patient is such that there exists a normal inability to leave home and consequently, leaving home would require a considerable and taxing effort. - Labs/Radiology CBC Date: 04/09/17 (Weekly, Sunday) CMP Date: 04/09/17 (Weekly, Sunday) CPK Date: 04/09/17 (Weekly, Sunday) Call or Fax Lab and Imaging Results to: [place] [facility] - Follow Up Care Current Providers and Referrals: [facility] [Outside] - As per Instructions
--- NOTE | 2017-04-04 11:44 | PDIAF ---
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 Code Status: Do Not Resuscitate - Medication Management Discharge Medications: Medications to Continue on Transfer Aflibercept [Eylea] 2 mg IO Q28D 03/25/17 [Last Taken 03/12/17] Alendronate Sodium [Fosamax 70 MG (*)] 70 mg PO WE@0700 03/25/17 [Last Taken Unknown] Cholecalciferol Vit D3 [Vitamin D3 (*)] 1,000 units PO DAILY 03/25/17 [Last Taken Unknown] Fish Oil/Dha/Epa [Fish Oil 1,200 mg Fish Oil] 1 each PO DAILY 03/25/17 [Last Taken Unknown] Furosemide [Lasix 40 MG (*)] 40 mg PO BIDDIUR 03/25/17 [Last Taken 03/24/17] Herbals/Supplements -Info Only 1 ea PO DAILY 03/25/17 [Last Taken Unknown] Hydrocodone/Acetaminophen [[place] 5/325 (*)] 1 - 2 tab PO Q4H PRN 03/25/17 [Last Taken 03/25/17 12:00 2 TABS] Levothyroxine [Synthroid 100 mcg (*)] 100 mcg PO DAILY06 03/25/17 [Last Taken ] Multivit-Min/Iron Fum/Folic AC [Yfdiz-Hliajby-Gurgensi Tablet] 1 each PO DAILY 03/25/17 [Last Taken Unknown] Mupirocin 2% [Bactroban 2%] 1 janneth TP DAILY PRN 03/25/17 [Last Taken Unknown] Warfarin Sodium [Coumadin 5MG (*)] 5 mg PO HS 03/25/17 [Last Taken 03/24/17] DAPTOmycin [Cubicin] 720 mg IV DAILY@1000 ml 04/04/17 [Last Taken Unknown] Metoprolol Succinate Xr [Toprol Xl 25 mg (*)] 25 mg PO DAILY #30 tab 04/04/17 [ Last Taken Unknown] Alf Antibiotics: daptomycin 720mg IV daily [employer] Antibiotic Stop Date: 05/13/17 Discharge Medications: Refer to the Discharge Home Medication list for PRN reason. PICC Care - Routine: Yes - Orders Services needed: Home Care, Registered Nurse, Physical Therapy, Occupational Therapy Home Care Face to Face: I certify that this patient was under my care and that I had the required mehp-lb-bshw encounter meeting the encounter requirements on the discharge day. My findings support the fact that the patient is homebound as defined in Home Care Face to Face Continued: CMS Chapter 7 Medicare Benefits Manual 30.1.1 , The condition of the patient is such that there exists a normal inability to leave home and consequently, leaving home would require a considerable and taxing effort. Diet Recommendation: no restrictions on diet Activity/Weight Bearing Restrictions: MARGARITO Guerrero - Labs/Radiology CBC Date: 04/09/17 (Weekly, Sunday) CMP Date: 04/09/17 (Weekly, Sunday) CPK Date: 04/09/17 (Weekly, Sunday) PT/INR Date: 04/06/17 (Results to [facility], follow closely while on atbx) Call or Fax Lab and Imaging Results to: [facility] - Follow Up Care Current Providers and Referrals: [facility] [Outside] - As per Instructions
--- NOTE | 2017-04-04 12:23 | ASMTCMCOM ---
CM Note CM Note Notes: CM spoke w/ Dr. Stauffer and Dr. Dukes regarding d/c. Pt is being discharged today. PT/OT cleared pt w/ HC. CM notified [facility] and [facility] infusion of pts d/c. CM faxed over d/c orders to both facilities. Pts family member will be picking pt up. CM available for changes. Date Signed: 04/04/2017 12:22 PM Electronically Signed By:ANALY Rosa
--- NOTE | 2017-04-04 15:39 | ASDISCHSUM ---
Discharge Information Plan Status:Home with Home Health Medically Cleared to Leave:04/04/2017 Discharge Date:04/04/2017 01:56 PM D/C Disposition: [facility] D/C Disposition:HHSNOTBCH Projected Discharge Date:04/04/2017 12:00 AM Transportation at D/C: Discharge Delay Reason: Follow-Up Date:04/04/2017 12:00 AM Discharge Slot: Final Diagnosis: Placement Information Referral Type:*Home Health Care Services Referral ID:[facility]-[id number] Provider Name:[facility] Address 1:[address] [place] [address] Address 2: City:[place] Selection Factors: State:[place] Referral Type:*Custodial/SNF Referral ID:[id number] Provider Name: Address 1: Phone Number: Address 2: Fax Number: City: Selection Factors: State: Referral Type:Home Infusion Referral ID:[id number] Provider Name:[facility] Address 1:[address] [place] Phone Number: Address 2: Fax Number: [facility]:[place] Selection Factors: State:[place] Patient Contact Information Contact Name:JUAN Relationship:Daughter Address:[address] Work Phone: Jan:RAMESH Vega Phone: State/Zip Code:[place] [address] Email: Financial Information Financial Class:Medicare Advantage Plans Primary Plan Desc:[employer] MED[employer]ARE ADV IP Primary Plan Number:[id number] Secondary Plan Desc:MEDICA[place] IP Secondary Plan Number:[id number] Assessment Information [facility] CM Progress Note CM Note CM Note Notes: Pt admitted with malaise and lower back pain. testing in progress, ID consult pending. C/M will follow for DC needs. Date Signed: 03/26/2017 12:53 PM Electronically Signed By:Suzette Oneill LCSW [facility] CM Progress Note CM Note CM Note Notes: CM met w/ pt for dispo planning. OT is recommending SNF. CM is still awaiting recommendation from PT. Pt is not interested in going to a facility until she finds out what's going on w/ her medically. CM to follow. Date Signed: 03/28/2017 02:37 PM Electronically Signed By:ANALY Rosa [facility] CM Progress Note CM Note CM Note Notes: CM consulted w/ OT regarding POC. OT is recommending SNF but would support pts wishes to go home w/ HC. CM spoke w/ RN. Pt is on CDIF precaution. CM met w/ pt for dispo planning. Pt is agreeable to having HC. Referral made to [facility]. [facility] has accepted pt when she is medically stable to d/c. Pt reports that her grandson, who is in his 20s may be able to live with her to help out. CM to follow. Date Signed: 03/30/2017 02:37 PM Electronically Signed By:ANALY Rosa [facility] CM Progress Note CM Note CM Note Notes: -04/02/2017 Case Management Note: Faxed IV antibiotic info to [facility]. Pt has Home Care arranged through [facility] who will provide the RN for the IV infusions. [facility] will also provide Home Health PT. Over the weekend, pt accepted to [facility] rehab. Edmund from [facility] visited w/pt today. Pt concerned that SNF is "place where people go to ". Educated pt that [facility] is only rehab and focused on short length of stays. Pt will need to decide at d/c which option is preferable. As of today, pt prefers to go home w/home care and have grandon live with her. Anticipating d/c mid to later part of the week. Case Management to follow. CM Note CM consulted w/ OT regarding POC. OT is recommending SNF but would support pts wishes to go home w/ HC. CM spoke w/ RN. Pt is on CDIF precaution. CM met w/ pt for dispo planning. Pt is agreeable to having HC. Referral made to [facility]. [facility] has accepted pt when she is medically stable to d/c. Pt reports that her grandson, who is in his 20s may be able to live with her to help out. CM to follow. Date Signed: 04/02/2017 03:00 PM Electronically Signed By:Mel Munoz RN [facility] Progress Note CM Note CM Note Notes: Chart reviewed. Met with patient to review dc POC. Patient wishes to go home with HHC and IV infusion. She reports she has good support, her grandson is to stay with her and she has adaptive equipment and modifications built into her home to facilitate her independence and mobility. Awaiting final blood cultures to proceed with picc and termite control representative ANTB plan per ID. [facility] co-ordinator Tracey ham, ([phone]). Updates to referals [facility] and Home infusion services. CM to follow. Date Signed: 04/03/2017 03:34 PM Electronically Signed By:Mary Kay Quiroga RN [facility] Progress Note CM Note CM Note Notes: CM spoke w/ Dr. Stauffer and Dr. Dukes regarding d/c. Pt is being discharged today. PT/OT cleared pt w/ HC. CM notified [facility] and [facility] home infusion of pts d/c. CM faxed over d/c orders to both facilities. Pts family member will be picking pt up. CM available for changes. Date Signed: 04/04/2017 12:22 PM Electronically Signed By:ANALY Rosa Intervention Information
--- NOTE | 2017-04-04 19:24 | PDIAF ---
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 Code Status: Do Not Resuscitate - Medication Management Discharge Medications: Medications to Continue on Transfer Aflibercept [Eylea] 2 mg IO Q28D 03/25/17 [Last Taken 03/12/17] Alendronate Sodium [Fosamax 70 MG (*)] 70 mg PO WE@0700 03/25/17 [Last Taken Unknown] Cholecalciferol Vit D3 [Vitamin D3 (*)] 1,000 units PO DAILY 03/25/17 [Last Taken Unknown] Fish Oil/Dha/Epa [Fish Oil 1,200 mg Fish Oil] 1 each PO DAILY 03/25/17 [Last Taken Unknown] Furosemide [Lasix 40 MG (*)] 40 mg PO BIDDIUR 03/25/17 [Last Taken 03/24/17] Herbals/Supplements -Info Only 1 ea PO DAILY 03/25/17 [Last Taken Unknown] Hydrocodone/Acetaminophen [[place] 5/325 (*)] 1 - 2 tab PO Q4H PRN 03/25/17 [Last Taken 03/25/17 12:00 2 TABS] Levothyroxine [Synthroid 100 mcg (*)] 100 mcg PO DAILY06 03/25/17 [Last Taken ] Multivit-Min/Iron Fum/Folic AC [Xnuvr-Gihyhbu-Ljfqjqzd Tablet] 1 each PO DAILY 03/25/17 [Last Taken Unknown] Mupirocin 2% [Bactroban 2%] 1 janneth TP DAILY PRN 03/25/17 [Last Taken Unknown] Warfarin Sodium [Coumadin 5MG (*)] 5 mg PO HS 03/25/17 [Last Taken 03/24/17] DAPTOmycin [Cubicin] 720 mg IV DAILY@1000 ml 04/04/17 [Last Taken Unknown] Metoprolol Succinate Xr [Toprol Xl 25 mg (*)] 25 mg PO DAILY #30 tab 04/04/17 [ Last Taken Unknown] Mcc Antibiotics: daptomycin 720mg IV daily Professor Of Psychology Antibiotic Stop Date: 05/13/17 Discharge Medications: Refer to the Discharge Home Medication list for PRN reason. PICC Care - Routine: Yes - Orders Services needed: Home Care, Registered Nurse, Physical Therapy, Occupational Therapy Home Care Face to Face: I certify that this patient was under my care and that I had the required xjyf-qo-lsga encounter meeting the encounter requirements on the discharge day. My findings support the fact that the patient is homebound as defined in Home Care Face to Face Continued: CMS Chapter 7 Medicare Benefits Manual 30.1.1 , The condition of the patient is such that there exists a normal inability to leave home and consequently, leaving home would require a considerable and taxing effort. Oxygen: 3 LPM Diet Recommendation: no restrictions on diet Activity/Weight Bearing Restrictions: [place], WBAT - Labs/Radiology CBC Date: 04/09/17 (Weekly, Sunday) CMP Date: 04/09/17 (Weekly, Sunday) CPK Date: 04/09/17 (Weekly, Sunday) PT/INR Date: 04/06/17 (Results to [facility], follow closely while on atbx) Call or Fax Lab and Imaging Results to: [facility] - Follow Up Care Current Providers and Referrals: [facility] [Outside] - As per Instructions
--- NOTE | 2017-04-05 04:07 | GDS ---
[f rep st] DISCHARGE SUMMARY DISCHARGE DIAGNOSES: 1. 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 2. Acute hypoxemic respiratory failure secondary to acute systolic heart failure exacerbation on bas vijaya O2 at 3 L/minute. 3. Mitral valve and aortic valve replacement. Anticoagulated with Coumadin with a therapeutic INR a t discharge. 4. Hypertension. 5. Diabetes mellitus. 6. Chronic pain with chronic continuous opioid dependence. 7. Acute encephalopathy, resolved. 8. Pleural effusions. 9. Contact dermatitis secondary to PICC line dressing is improved with steroid cream. 10. Thoracic back pain with no evidence of epidural abscess or diskitis noted on MRI. 11. Normocytic anemia with a stable hemoglobin between 9 and 10. CONSULTANTS: 1. Dr. Otto Hoyt, Infectious Disease. 2. Dr. Stiven Caldwell, cardiology. IMAGING STUDIES/PROCEDURES: 1. Chest x-ray March 25, 2017, showed bilateral diffuse interstitial infiltrates representing in terstitial pneumonitis versus pulmonary edema. 2. Lumbar spine x-ray shows moderate to severe degenerative disk disease with severe canal stenosis and neuroforaminal stenosis but no evidence of fractures. 3. Thoracic spine x-ray showed lrvo-at-egjbbzkr degenerative disease, again without fracture. Thora cic spine MRI was negative for epidural abscess or osteomyelitis. 4. Transesophageal echocardiogram showed normal left ventricular systolic function with no evidence of intracardiac shunting, mechanical bileaflet mitral valve prosthesis with mild mitral regurgitation but no vegetation. Aortic valve prosthesis is also noted. No pericardial effusion was seen. 5. Abdomen and pelvis CT shows no source of bacteremia. Small bilateral pleural effusions with lowe r lobe consolidations were noted. 6. PICC line insertion, April 04, 2017. HISTORY: For details, please see dictated history and physical dated March 25, 2017. In brief, the patient is an 81-year-old female with a history of heart failure, recent UTI with bacteremia, hyp ertension, and chronic lower extremity wounds and prosthetic aortic and mitral valves, who presented to the emergency department with malaise and weakness. She was admitted to the hospital for further evaluation. HOSPITAL COURSE: The patient was admitted to the progressive care unit. She was noted to be volume overloaded with evidence of heart failure exacerbation and treated with IV Lasix. There was initial concern for persistent infection. In the ED, her blood cultures grew enterococcus in 2 out of 2 sets . Preliminary echocardiogram was concerning for possible vegetation; however, the transesophageal ec hocardiogram did not confirm vegetation. She was initially treated with IV vancomycin. Infectious D isease consult was obtained. Given her thoracic back pain, an MRI was obtained to rule out an epidur al abscess or osteomyelitis. Her initial set of blood cultures were both positive on March 25. Repeat blood cultures again remained positive on March 27 in both bottles, and once again per sistently positive blood cultures were noted on March 29. Clostridium difficile was detected o n her GI pathogen panel, although it was ultimately deemed she was colonized and this was not a sourc e of acute infection. Given her persistently positive blood cultures and high-grade enterococcal doris teremia, there was legitimate concern for a prosthetic valve endocarditis despite not having this con firmed on transesophageal echocardiogram. She was ultimately changed to IV daptomycin. Her PICC odalys e was changed, and finally repeat blood cultures April 01 have remained negative for over 72 ho urs at the time of discharge. The patient will continue IV daptomycin for total of 6 weeks, and she should be followed closely by her [facility] team. Our therapy team recommended [facility] for rehab. The patient adamantly refused this and wished to discharge home with home health care. DISPOSITION: Patient is discharged home with home health care and [facility] infusion services for ongoing antibiotic need. DISCHARGE MEDICATIONS: Please see [employer] for complete updated outpatient medication list. She jhon l continue all outpatient medications as prescribed with the exception of the following: Atenolol wa s discontinued. She was started on Toprol-XL 25 mg p.o. daily, #30, no refills and daptomycin 720 mg IV daily with a stop date of May 13, 2017. FOLLOWUP: 1. [facility]. 2. [facility]. /[id number]/MODL
== END 2017-04-04 13:56 | disposition home health service (06) | DRG 314 ==
LOC: EDUNIT# → OBSVTOIN 21:00 → F2W 23:07
PROVIDERS: ADMIT Internal Medicine; ATTEND Internal Medicine
PROC: 02HV33Z Insertion of Infusion Device into Superior Vena Cava, Percutaneous Approach (ICD-10-PCS; 2017-03-25)
PROC: B246ZZ4 Ultrasonography of Right and Left Heart, Transesophageal (ICD-10-PCS; principal; 2017-03-27)
PROC: 02HV33Z Insertion of Infusion Device into Superior Vena Cava, Percutaneous Approach (ICD-10-PCS; 2017-04-04)
DX: T82.6XXA Infection and inflammatory reaction due to cardiac valve prosthesis, initial encounter (principal); I11.0 Hypertensive heart disease with heart failure; I50.21 Acute systolic (congestive) heart failure; R78.81 Bacteremia; J96.01 Acute respiratory failure with hypoxia; G93.40 Encephalopathy, unspecified; B95.2 Enterococcus as the cause of diseases classified elsewhere; B96.89 Other specified bacterial agents as the cause of diseases classified elsewhere; R19.7 Diarrhea, unspecified; L25.9 Unspecified contact dermatitis, unspecified cause; E66.01 Morbid (severe) obesity due to excess calories; Z68.41 Body mass index [BMI] 40.0-44.9, adult; E11.9 Type 2 diabetes mellitus without complications; F11.20 Opioid dependence, uncomplicated; M54.6 Pain in thoracic spine; G89.29 Other chronic pain; E03.9 Hypothyroidism, unspecified; G47.33 Obstructive sleep apnea (adult) (pediatric); Z87.440 Personal history of urinary (tract) infections; Z86.718 Personal history of other venous thrombosis and embolism; Z87.891 Personal history of nicotine dependence; Z66 Do not resuscitate; Z95.1 Presence of aortocoronary bypass graft; Z79.01 Long term (current) use of anticoagulants
CPT/HCPCS: 97112-GP; 97116-GP; 97162-GP; 97166-GO; 97530-GO; 97530-GP; 97535-GO; A9585; C1751; J0878; J1815; J1940; J2405; J2704; J3370